=== PATIENT | female | born 1940 | race Caucasian/White ===

== ENCOUNTER → 2016-03-19 12:24 | Outpatient (CLI) | payer MEDICARE, OTHER ==
[2011-11-27 06:35] VITALS: BMI 23.9
[~2016-03-19 12:24] MED LIST: AMITRIPTYLINE100 MG PO; CALCIUM 500 + D1 TAB PO; CARDURA4 MG PO; DILAUDID2 MG PO; DYAZIDE 37.5/251 CAP PO; MULTIPLE VITAMI1 TA1 PO; OMEPRAZOLE40 MG PO; PEPCID20 MG PO; PHENERGAN25 M1 PO; PROAIR HFA8.5 GM INH; PROBIOTIC1 EAC1 PO; PULMICORT0.5 MG/21 INH; REGLAN10 MG PO; SINGULAIR10 MG PO; TESSALON PERLE100 MG PO; TIROSINT100 MCG PO; TRAZODONE HCL50 MG PO; VITAMIN B-1000 MCG/M IM; VITAMIN D250000 UNIT PO; ZOCOR20 MG PO
[2016-03-19 13:09] LABS: BASOPHILS 0.6 % (0.0-2.0); EOSINOPHILS 1.7 % (0-7); HEMATOCRIT 43.4 % (36.0-48.0); HEMOGLOBIN 14.4 g/dL (12-16); IMMATURE GRANULOCYTES 0.3 % (0-5); LYMPHOCYTES 35.8 % (15-50); MCH 32.4 pg (26.0-34.0); MCHC 33.2 g/dL (31.0-37.0); MCV 97.7 fL (80.0-100.0); MEAN PLATELET VOLUME 10.4 fL (7.4-10.4); MONOCYTES 10.6 % (2-11); PLATELET COUNT 199 10x3/uL (130-400); RBC 4.44 10x6/uL (4.00-5.40); RDW 13.7 % (11.5-14.5); WBC 7.3 10x3/uL (4.8-10.8)
[2016-03-19 13:27] LABS: CREATININE - SERUM 0.8 mg/dL (0.6-1.3)
[2016-03-20 10:18] LABS: IMMUNOGLOBULIN E 112 IU/mL (0-100)
== END | disposition home or self-care (01) ==
LOC: D.RT 12:24
PROVIDERS: Internal Medicine Pulmonary Disease
DX: R04.2 Hemoptysis (principal)

== ENCOUNTER → 2016-03-21 12:27 | Outpatient (CLI) | payer MEDICARE, OTHER ==
[2011-11-27 06:35] VITALS: BMI 23.9
== END | disposition home or self-care (01) ==
LOC: D.RT 12:27
DX: J45.991 Cough variant asthma (principal)

== ENCOUNTER 2016-04-18 06:22 | Day surgery (SDC) | payer MEDICARE, OTHER ==
[~2016-04-18] VITALS: Ht 160 cm; Wt 67.3 kg
[2016-04-18 07:18] LABS: BASOPHILS 0.9 % (0.0-2.0); EOSINOPHILS 2.6 % (0-7); HEMATOCRIT 39.1 % (36.0-48.0); HEMOGLOBIN 13.1 g/dL (12-16); LYMPHOCYTES 38.6 % (15-50); MCH 32.3 pg (26.0-34.0); MCHC 33.5 g/dL (31.0-37.0); MCV 96.5 fL (80.0-100.0); MEAN PLATELET VOLUME 9.9 fL (7.4-10.4); MONOCYTES 12.6 % (2-11); NEUTROPHILS 45.3 % (40-80); PLATELET COUNT 187 10x3/uL (130-400); RBC 4.05 10x6/uL (4.00-5.40); RDW 13.5 % (11.5-14.5); WBC 4.6 10x3/uL (4.8-10.8)
[2016-04-18 07:29] LABS: ANION GAP 10.2 mmol/L (8-16); CARBON DIOXIDE 32.5 mmol/L (21.0-32.0); CREATININE - SERUM 0.8 mg/dL (0.6-1.3); POTASSIUM - SERUM 3.7 mmol/L (3.5-5.1)
[2016-04-18 07:31] LABS: APTT 30.6 SECONDS (22.8-39.4); INR 1.05 (0.85-1.17); PROTIME 13.6 SECONDS (11.6-15.0)
[2016-04-18] MEDS ORDERED: TIROSINT100 MCG PO (08:08)
[2016-04-18] MEDS ORDERED: CARDURA4 MG PO (08:09)
[2016-04-18] MEDS ORDERED: ZOCOR20 MG PO (08:09)
[2016-04-18] MEDS ORDERED: TRAZODONE HCL50 MG PO (08:10)
[2016-04-18] MEDS ORDERED: OMEPRAZOLE40 MG PO (08:10)
[2016-04-18] MEDS ORDERED: AMITRIPTYLINE100 MG PO (08:11)
[2016-04-18] MEDS ORDERED: DYAZIDE 37.5/251 CAP PO (08:11)
[2016-04-18] MEDS ORDERED: VITAMIN D250000 UNIT PO (08:12)
[2016-04-18] MEDS ORDERED: PROBIOTIC1 EAC1 PO (08:13)
[2016-04-18] MEDS ORDERED: VITAMIN B-1000 MCG/M IM (08:13)
[2016-04-18] MEDS ORDERED: MULTIPLE VITAMI1 TA1 PO (08:13)
[2016-04-18] MEDS ORDERED: CALCIUM 500 + D1 TAB PO (08:14)
[2016-04-18 08:15] VITALS: BP 126/83; Ht 160 cm; Wt 67.3 kg
[2016-05-14] MEDS ORDERED: PEPCID20 MG PO (12:40)
[2016-05-14] MEDS ORDERED: TESSALON PERLE100 MG PO (12:41)
[2016-05-14] MEDS ORDERED: SINGULAIR10 MG PO (12:41)
[2016-05-14] MEDS ORDERED: PULMICORT0.5 MG/21 INH (12:44)
--- NOTE | 2016-05-16 13:21 | OP ---
PATIENT NAME: CARMELO ABDALLA MEDICAL RECORD: [id number] :39 LOCATION:D.OPS ADMISSION DATE: SURGEON: GUY DUBOIS MD DATE OF OPERATION: 04/18/2016 PREOPERATIVE DIAGNOSES: 1. Gastroesophageal reflux disease. 2. Hiatal hernia. 3. Hypertension. 4. Thyroid disease. 5. Asthma. 6. Hyperlipidemia. POSTOPERATIVE DIAGNOSES: 1. Gastroesophageal reflux disease. 2. Hiatal hernia. 3. Hypertension. 4. Thyroid disease. 5. Asthma. 6. Hyperlipidemia. PROCEDURE: EGD with biopsy. SURGEON: Guy Dubois MD REPORT OF PROCEDURE: The Olympus endoscope was advanced through the mouth and esophagus. We passed through the stomach and into the second portion of the duodenum. There was no sign of any inflammatory changes present there. As we pulled back, we could see some evidence of gastritis with no ulcerations or masses in the antrum of the stomach. The random biopsy was performed to the antrum of the stomach. As we looked at the body of the stomach, there were about 3-4 polyps present, some sessile, some pedunculated, all appeared to be benign, looking more like hyperplastic polyps. One of the polyps was completely excised and sent off for permanent specimen. A retroflex view showed that the patient did have a large hiatal hernia. As we pulled back, we could see that the hiatal hernia was 5 cm in length. The GE junction rested at 31 cm from the teeth. The esophagus itself appeared to be normal with no signs of any masses, ulcerations or diverticuli. The distal esophagus had no sign of any ulcerations, but a random biopsy was performed. We reinspected and assured there was no sign of any active bleeding and then removed the insufflation. At this point, the endoscope was removed. COMPLICATIONS: None. CONDITION: Stable. ANESTHESIA: TIVA. BLOOD LOSS: Minimal. TRANSINT:[id number] Voice Confirmation ID: [id number] DOCUMENT ID: [id number] OPERATIVE REPORT [id number] RMCARMELO GUY DUBOIS MD at 1321 CC: NIC REINOSO MD [id number] DICTATION DATE: 04/18/16 1033 [place] MACHINIST: 04/18/16 1838 [facility] 04/18/16 [facility] [address] [place] [address]
== END 2016-04-18 12:10 | disposition home or self-care (01) ==
LOC: D.OPS 06:22
PROVIDERS: Anesthesiology
DX: K21.9 Gastro-esophageal reflux disease without esophagitis (principal); K44.9 Diaphragmatic hernia without obstruction or gangrene; I10 Essential (primary) hypertension; E07.9 Disorder of thyroid, unspecified; J45.909 Unspecified asthma, uncomplicated; E78.5 Hyperlipidemia, unspecified; K20.9 Esophagitis, unspecified; K31.9 Disease of stomach and duodenum, unspecified

== ENCOUNTER 2016-05-15 05:26 | Day surgery (SDC) | payer MEDICARE, OTHER ==
[2016-05-14 13:28] LABS: BASOPHILS 0.6 % (0.0-2.0); EOSINOPHILS 1.4 % (0-7); HEMATOCRIT 38.1 % (36.0-48.0); HEMOGLOBIN 12.6 g/dL (12-16); IMMATURE GRANULOCYTES 0.2 % (0-5); LYMPHOCYTES 40.4 % (15-50); MCH 31.8 pg (26.0-34.0); MCHC 33.1 g/dL (31.0-37.0); MCV 96.2 fL (80.0-100.0); MEAN PLATELET VOLUME 10.1 fL (7.4-10.4); MONOCYTES 8.7 % (2-11); NEUTROPHILS 48.7 % (40-80); PLATELET COUNT 192 10x3/uL (130-400); RBC 3.96 10x6/uL (4.00-5.40); RDW 13.6 % (11.5-14.5); WBC 6.3 10x3/uL (4.8-10.8)
[2016-05-14 13:52] LABS: ANION GAP 13.3 mmol/L (8-16); CARBON DIOXIDE 29.3 mmol/L (21.0-32.0); CREATININE - SERUM 0.8 mg/dL (0.6-1.3); POTASSIUM - SERUM 3.6 mmol/L (3.5-5.1)
[2016-05-15] VITALS (9 sets, daily range): BP systolic 106–139; BP diastolic 65–80; Ht 160 cm; Wt 67.3 kg
[~2016-05-15] VITALS: Ht 160 cm; Wt 67.3 kg
[~2016-05-15 05:26] MED LIST changes: -DILAUDID2 MG PO; -PHENERGAN25 M1 PO; -PROAIR HFA8.5 GM INH; -REGLAN10 MG PO
[2016-05-15] MEDS ORDERED: PROAIR HFA8.5 GM INH (08:32)
--- NOTE | 2016-05-15 13:56 | NUR ---
CARE TO JONH NIEVES RN @[id number]
--- NOTE | 2016-05-15 14:20 | NUR ---
RECD TO ROOM 2224 VIA STRETCHER AT PRESENT BANDAIDE TIMES 4 TO ABD AT PRESENT AT BEDSIDE.
--- NOTE | 2016-05-15 16:00 | NUR ---
QUIET IN ROOM AT PRESENT N/C VOICED AT THIS TIME.
--- NOTE | 2016-05-15 18:52 | NUR ---
AWAKE ALERT COLOR ADQ SKIN WARM AND DRY RESP EVEN AND UNLABORED AT PRESENT.ANIMAL PATHOLOGY TEACHER IN PLACE CONT NPO AT PRESENT 4 BANDAIDES TO ABD AT PRESENT. AT BEDSIDE AT PRESENT N/C.
--- NOTE | 2016-05-15 19:10 | NUR ---
BEDSIDE REPORT RECEIVED AND CARE OF PT ASSUMED. PT LYING IN SEMI BUTLER'S POSITION WATCHING TV. STATES PAIN WELL CONTROLLED ON WELDER. NPO STATUS DISCUSSED WITH PT. WILL MONITOR CLOSLEY FOR NEEDS. CALL LIGHT WITHIN REACH.
--- NOTE | 2016-05-15 20:19 | NUR ---
HS MEDICATIONS GIVEN. PT STATES PAIN WELL CONTROLLED WITH HAND EDGE BANDER. WILL CONTINUE TO MONITOR FOR NEEDS.
--- NOTE | 2016-05-15 23:54 | NUR ---
ASSISTED PT UP TO RESTROOM...VOIDED 400 ML OF YELLOW URINE. POSITIONED BACK IN BED FOR COMFORT. SCD'S RE-STARTED. PT PERFORMED IS TO 1000. WILL CONTINUE TO MONITOR FOR NEEDS.
[2016-05-16 05:26] LABS: BASOPHILS 0 % (0.0-2.0); EOSINOPHILS 0 % (0-7); HEMATOCRIT 33.5 % (36.0-48.0); HEMOGLOBIN 10.9 g/dL (12-16); IMMATURE GRANULOCYTES 0.1 % (0-5); MCH 31.8 pg (26.0-34.0); MCHC 32.5 g/dL (31.0-37.0); MCV 97.7 fL (80.0-100.0); MEAN PLATELET VOLUME 10.1 fL (7.4-10.4); NEUTROPHILS 84.9 % (40-80); PLATELET COUNT 185 10x3/uL (130-400); RBC 3.43 10x6/uL (4.00-5.40); RDW 14.1 % (11.5-14.5)
[2016-05-16 05:31] LABS: CALC OSMOLALITY 280 mosm/kg (275-300); CARBON DIOXIDE 28.2 mmol/L (21.0-32.0); CHLORIDE - SERUM 108 mmol/L (98-107); CREATININE - SERUM 0.7 mg/dL (0.6-1.3); GLUCOSE 118 mg/dL (74-106); POTASSIUM - SERUM 3.8 mmol/L (3.5-5.1); SODIUM 141 mmol/L (136-145); UREA NITROGEN 9 mg/dL (7-18); eGFR NON AFRICAN AMERICAN 86 mL/min (90-120)
[2016-05-16 05:48] LABS: CALCIUM 6.9 mg/dL (8.5-10.1)
[2016-05-16 07:55] VITALS: BP 128/75
--- NOTE | 2016-05-16 08:00 | NUR ---
PT ASSESSMENT COMPLETE ON AM ROUNDS NO ACUTE DISTRESS NTOED DRESSING INTACT FROM LAP LYNN PROCEEDURE YESTERDAY. PT AWAKE AND ALERT ORINETD X 3 LUNGS CLEAR BIALTERALLY HAS DRESSING IN TACT WILL CONTINUE TO MONITOR.
--- NOTE | 2016-05-16 11:00 | NUR ---
PT AWAKE AND WALKING ON UNIT. BALANCE AND GAIT GOOD. SPOUSE AT SIDE.
[2016-05-16 12:22] VITALS: BP 113/65
--- NOTE | 2016-05-16 13:21 | OP ---
PATIENT NAME: CARMELO ABDALLA MEDICAL RECORD: [id number] :39 LOCATION: D.2224 ADMISSION DATE: SURGEON: GUY DUBOIS MD DATE OF OPERATION: 05/15/2016 PREOPERATIVE DIAGNOSES: 1. Gastroesophageal reflux disease. 2. Hiatal hernia. 3. Asthma. 4. Hypertension. 5. Hypercholesterolemia. 6. Vitamin D deficiency. 7. Tobacco dependent syndrome. POSTOPERATIVE DIAGNOSES: 1. Gastroesophageal reflux disease. 2. Hiatal hernia. 3. Asthma. 4. Hypertension. 5. Hypercholesterolemia. 6. Vitamin D deficiency. 7. Tobacco dependent syndrome. PROCEDURE: Laparoscopic hiatal hernia repair with Joseph fundoplication. SURGEON: Guy Dubois MD REPORT OF PROCEDURE: The patient's abdomen was prepped and draped in sterile fashion. A Veress needle was inserted in the left upper quadrant and the abdomen was insufflated. An 11-mm Visiport trocar was inserted in the midline just above the umbilicus. The Veress needle was visualized and there was no evidence of any injury to bowel or surrounding structures. At this point, the Veress needle was removed and a 12-mm trocar was placed in the left subcostal region. A 5-mm trocar was placed in the epigastrium. A 5-mm trocar was placed in the left lateral abdomen and a 5-mm trocar was placed in the right lateral subcostal region. The liver retractor was inserted and the left lobe of the liver was elevated. The patient had a large hiatal hernia with about a third of the stomach up in the chest cavity, we manipulated the stomach out of the chest cavity and took down the lesser omentum using Harmonic scalpel. This dissection was continued up to the right side of the right adela. We continued our dissection up into the thoracic cavity and around the esophagus. We took down the hernia sac and was able to get into the plane around the hernia sac up into the chest. We continued our dissection as far anteriorly and posteriorly as possible. At this point, we went to the greater curvature of the stomach and using Harmonic scalpel, took down the short gastrics of the upper third of the stomach including the fundus, we continued our dissection around the fundus and up to the left side of the right adela. We then continued our dissection up into the thoracic cavity and again came around the patient's thoracic hernia sac. Once we got into the plane, we were able to release the hernia sac. At this point, we had a 360 degree inspection of the patient's esophagus. The esophagus and the stomach would easily lie in the abdominal cavity at this point. The hernia sac was removed. At this point, the esophageal hiatus was closed with interrupted 0 Polydek times 3 with good approximation of the tissue. We then performed a 360-degree posterior wrap at the fundus around the distal esophagus. This was performed using interrupted 0 Polydek times 3. The top and the bottom OPERATIVE REPORT [id number] CARMELO ABDALLA suture incorporated a bite of the esophagus. The wrap appeared to be in good position and it did not appear to be too tight. The indwelling OG tube was removed easily. We irrigated out the abdomen and assured there was no sign of any bleeding or leakage. At this point, the liver retractor was removed. The 11 and 12-mm trocar site fascias were then closed with interrupted 0 Vicryls using a Leonardo-George suture passer device. The ports and insufflation were then removed. The subcutaneous tissues were infused with a total of 10 mL of 0.25% Marcaine with epinephrine. The skin incisions were then all closed with subcutaneous 5-0 Monocryl. COMPLICATIONS: None. CONDITION: Stable. ANESTHESIA: General endotracheal and local. BLOOD LOSS: Minimal. TRANSINT:[id number] Voice Confirmation ID: [id number] DOCUMENT ID: [id number] GUY DUBIOS MD at 1321 CC: KATHLEEN FIELDS MD and NIC REINOSO MD [id number] DICTATION DATE: 05/15/16 1330 ASSOCIATE PROGRAM MANAGER: 05/15/16 1855 [facility] [address] [place] [id number]
[2016-05-16] MEDS ORDERED: REGLAN10 MG PO (14:12)
[2016-05-16] MEDS ORDERED: PHENERGAN25 M1 PO (14:12)
[2016-05-16] MEDS ORDERED: DILAUDID2 MG PO (14:13)
--- NOTE | 2016-05-16 16:26 | NUR ---
PT DISCHARGE TO HOME DISCHARGE INSTRUCTIONS GIVEN PT EXPRESSED UNDERSTANDING. PIV DISCONTINUED WITH NO DIFFICULTY NOTED.
== END 2016-05-16 16:26 | disposition home or self-care (01) ==
LOC: D.OPS 05:26 → D.MS 05:26 → D.OPS 10:00 → D.PAN 10:45 → D.OPS 11:30 → D.MS 14:19 → D.OPS 05-16 16:26
PROVIDERS: Surgery
DX: K21.9 Gastro-esophageal reflux disease without esophagitis (principal); K44.9 Diaphragmatic hernia without obstruction or gangrene; J45.909 Unspecified asthma, uncomplicated; I10 Essential (primary) hypertension; E78.00 Pure hypercholesterolemia, unspecified; E55.9 Vitamin D deficiency, unspecified; F17.200 Nicotine dependence, unspecified, uncomplicated

== ENCOUNTER 2016-06-12 20:30 | Emergency (ER) | payer MEDICARE, OTHER ==
[~2016-06-12 20:30] MED LIST changes: +DILAUDID2 MG PO; +PHENERGAN25 M1 PO; +PROAIR HFA8.5 GM INH; +REGLAN10 MG PO
[2016-06-12 21:55] LABS: BASOPHILS 0 % (0-2); EOSINOPHILS 0.3 % (0-7); HEMATOCRIT 43.6 % (36.0-48.0); HEMOGLOBIN 15.4 g/dL (12-16); IMMATURE GRANULOCYTES 0.6 % (0-5); LYMPHOCYTES 20.3 % (15-50); MCH 32.4 pg (26.0-34.0); MCHC 35.3 g/dL (31.0-37.0); MCV 91.6 fL (80.0-100.0); MEAN PLATELET VOLUME 10.5 fL (7.4-10.4); NEUTROPHILS 69.8 % (40-80); RBC 4.76 10x6/uL (4.00-5.40); WBC 11.2 10x3/uL (4.8-10.8)
[2016-06-12 21:57] LABS: PLATELET COUNT 230 10x3/uL (130-400)
[2016-06-12 22:10] LABS: ALBUMIN 3.8 g/dL (3.4-5.0); ALKALINE PHOSPHATASE 79 U/L (46-116); ALT (SGPT) 46 U/L (10-68); BILIRUBIN - TOTAL 0.54 mg/dL (0.2-1.3); CALC OSMOLALITY 268 mosm/kg (275-300); CALCIUM 9.5 mg/dL (8.5-10.1); CARBON DIOXIDE 29.2 mmol/L (21.0-32.0); CHLORIDE - SERUM 95 mmol/L (98-107); CREATININE - SERUM 0.8 mg/dL (0.6-1.3); GLUCOSE 115 mg/dL (74-106); POTASSIUM - SERUM 3.7 mmol/L (3.5-5.1); PROTEIN - SERUM 6.8 g/dL (6.4-8.2); SODIUM 132 mmol/L (136-145); UREA NITROGEN 20 mg/dL (7-18); eGFR NON AFRICAN AMERICAN 74 mL/min (90-120)
[2016-06-12 22:18] LABS: CREATINE KINASE 40 UL (21-215)
[2016-06-12 22:20] LABS: TROPONIN-I < 0.017 ng/mL (0.000-0.060)
== END 2016-06-12 23:15 | disposition home or self-care (01) ==
LOC: D.ER 20:30
PROVIDERS: Emergency Medicine
DX: K21.9 Gastro-esophageal reflux disease without esophagitis (principal); K22.4 Dyskinesia of esophagus; C18.9 Malignant neoplasm of colon, unspecified; I10 Essential (primary) hypertension

== ENCOUNTER 2016-06-17 01:23 | Inpatient (IN) | payer MEDICARE, OTHER ==
[~2016-06-17] VITALS: Ht 160 cm; Wt 66.4 kg
--- NOTE | ~2016-06-17 | CN ---
PATIENT NAME:CARMELO ABDALLA MEDICAL RECORD: [id number] : 39 LOCATION:D. D.2128 ADMIT DATE: 06/17/16 ACCOUNT: [id number] CONSULTING PHYSICIAN: ALEJANDRA MATHEWS MD REFERRING PHYSICIAN: CINTHIA NGO MD DATE OF CONSULTATION: 06/17/2016 Consultation Note Addendum CHIEF COMPLAINT: Pain. HISTORY OF PRESENT ILLNESS: The patient has had recurrent diverticulitis. This is now her second or third bout of diverticulitis. She is not sure whether she wants to have a resection or not yet. I have personally reviewed the CT images. I have personally reviewed the radiologist's report. Palpation aggravates. Nothing alleviates. Symptoms are of recent onset. They are recurrent symptoms. She has had no rectal bleeding. This is a consultation note addendum. For the typed portion of the consult note, to see in the chart and includes the past medical and surgical history, allergies, social history, as well as current medications. REVIEW OF SYSTEMS: No nausea, no vomiting, no fever, no chills. As a matter of fact, the patient was eating a piece of soft diet and I am going to put her on a clear liquid diet. Positive for abdominal pain. No dyspnea, no back pain. PHYSICAL EXAMINATION: GENERAL: The patient does not appear acutely ill. She does appear chronically ill. The entire physical examination was performed in the presence of a female nurse. HEAD: External ears appear normal. EYES: Extraocular movements are intact. NECK: Trachea is midline. CHEST: No intercostal retractions. PULMONARY: Nonlabored, no stridor. ABDOMEN: Left lower quadrant tenderness with guarding and localized peritonitis to percussion. EXTREMITIES: No peripheral cyanosis. INTEGUMENT: No rash, no ulcerations. PSYCHIATRIC: Normal affect. NEUROLOGIC: Nonfocal, no lethargy. The patient answers questions appropriately, moves all extremities well. BACK: No thoracic kyphosis. LYMPHATICS: No lymphangitic streaking of the exposed extremities. IMPRESSION: Recurrent diverticulitis without apparent abscess or free intraperitoneal air. PLAN: Continue IV antibiotics. I am going to add Invanz in addition to the Flagyl the patient is already on. She is intolerant of Levaquin. She has never tried Cipro in the past, however. TRANSINT:[id number] Voice Confirmation ID: [id number] DOCUMENT ID: [id number] CONSULT REPORT [id number] CARMELO ABDALLA ROBERT MD CC: [id number] DICTATION DATE: 06/19/16 1056 PLANT OPERATOR HELPER: 06/19/16 1337 [address] [place] [id number] [place] [id number]
--- NOTE | ~2016-06-17 | PN ---
PATIENT:CARMELO ABDALLA MEDICAL RECORD: [id number] LOCATION:D.M2 D.212 ADMISSION DATE: 06/17/16 PROGRESS NOTE DATE OF SERVICE: 06/18/2016 Daily Visit Progress Note Addendum CHIEF COMPLAINT: Better. SUBJECTIVE: She is having less abdominal pain. She feels better. She now tells me that she has actually seen Dr. Mendez in the past. He has performed an antireflux procedure on her. This is her third bout of diverticulitis. After she recovers from this bout of diverticulitis, she is uncertain whether she wants to undergo a segmental resection of the sigmoid colon or not. She will decide on that and see Dr. Mendez in the office. There is no peritonitis to percussion today. I am going to advance her diet. She is intolerant of Levaquin due to muscle aches; however, she is willing to try Cipro. I have recommended that she be dismissed home on Cipro as well as Flagyl. She can follow up with Dr. Mendez. Palpation aggravates. Nothing alleviates. Symptoms are mild in intensity. This is a progress note addendum. For the typed portion of the progress note, please see the chart. This would include past medical and surgical history, allergies, social history as well as current medications. REVIEW OF SYSTEMS: No nausea, no vomiting, no fever and no chills. The review systems is negative other than as described above. PHYSICAL EXAMINATION: GENERAL: The patient does not appear acutely ill. She does appear chronically ill. VITAL SIGNS: Reviewed. HEAD: External ears appear normal. EYES: Extraocular movements are intact. The entire physical examination was performed in the presence of a female nurse. NECK: Trachea is midline. CHEST: No intercostal retractions. PULMONARY: Nonlabored, no stridor. ABDOMEN: As described above. EXTREMITIES: No peripheral cyanosis. INTEGUMENT: No rash. PSYCHIATRIC: Normal affect. NEUROLOGIC: Nonfocal, no lethargy. The patient answers questions appropriately. She moves all extremities well. BACK: No thoracic kyphosis. LYMPHATIC: No lymphangitic streaking of the exposed extremities. IMPRESSION: Recurrent diverticulitis. PLAN: Home on oral antibiotics. Follow up with Dr. Mendez, her surgeon. TRANSINT:[id number] Voice Confirmation ID: [id number] DOCUMENT ID: [id number] PROGRESS NOTE [id number] CARMELO ABDALLA ROBERT MD CC: [id number] DICTATION DATE: 06/19/16 1111 SOCIAL WORKER PALLIATIVE CARE: 06/19/16 183 [address] IN 06/19/16 [address] [id number] [place] [address]
[2016-06-17 02:20] LABS: BASOPHILS 0.1 % (0-2); EOSINOPHILS 0.7 % (0-7); HEMATOCRIT 39.8 % (36.0-48.0); HEMOGLOBIN 13.5 g/dL (12-16); IMMATURE GRANULOCYTES 0.3 % (0-5); LYMPHOCYTES 19.1 % (15-50); MCH 31.7 pg (26.0-34.0); MCHC 33.9 g/dL (31.0-37.0); MCV 93.4 fL (80.0-100.0); MEAN PLATELET VOLUME 10.3 fL (7.4-10.4); MONOCYTES 8.6 % (2-11); NEUTROPHILS 71.2 % (40-80); PLATELET COUNT 165 10x3/uL (130-400); RBC 4.26 10x6/uL (4.00-5.40); RDW 13.3 % (11.5-14.5); WBC 14.8 10x3/uL (4.8-10.8)
[2016-06-17 02:41] LABS: AMYLASE - SERUM 27 U/L (25-115); CREATININE - SERUM 0.7 mg/dL (0.6-1.3); GLUCOSE 128 mg/dL (74-106); LIPASE 92 U/L (73-393); UREA NITROGEN 13 mg/dL (7-18)
[2016-06-17 02:42] LABS: ALBUMIN 3.2 g/dL (3.4-5.0); ALKALINE PHOSPHATASE 79 U/L (46-116); ALT (SGPT) 27 U/L (10-68); BILIRUBIN - TOTAL 0.78 mg/dL (0.2-1.3); CALC OSMOLALITY 273 mosm/kg (275-300); CALCIUM 8.8 mg/dL (8.5-10.1); CARBON DIOXIDE 30.4 mmol/L (21.0-32.0); CHLORIDE - SERUM 99 mmol/L (98-107); POTASSIUM - SERUM 3.4 mmol/L (3.5-5.1); SODIUM 136 mmol/L (136-145); eGFR NON AFRICAN AMERICAN 86 mL/min (90-120)
[2016-06-17 02:45] LABS: TROPONIN-I < 0.017 ng/mL (0.000-0.060)
--- NOTE | 2016-06-17 05:30 | NUR ---
RECEIVED PT TO ROOM 2128 ALERT O X3. ASSESS AND HISTORY COMPLETE. ORIENTED TO ROOM AND CALL LIGHT. BED ALARM ON. WILL CONT TO MONITOR.
[2016-06-17 05:48] VITALS: BP 115/62; BMI 24.6
[2016-06-17 08:08] VITALS: BP 107/65
--- NOTE | 2016-06-17 08:17 | NUR ---
AM ROUNDS - PT APPEARS TO BE SLEEPING ON BACK WITH BREATHS EQUAL AND NON LABORED. IV IS OFF. WILL CONTINUE TO MONITOR.
--- NOTE | 2016-06-17 11:10 | NUR ---
OFFERED PT SCDS FOR DVT PROPHYLACTICS HOWEVER PT DENIES NEED OR WANT TO WEAR THEM SHE IS AMBULATORY OFTEN AND CURRENTING WALKING WITH PHYSICAL THERAPY WELL.
[2016-06-17 11:39] VITALS: BP 121/70
[2016-06-17 13:09] VITALS: Ht 160 cm; Wt 66.4 kg
[2016-06-17 15:38] VITALS: BP 124/66
--- NOTE | 2016-06-17 18:27 | NUR ---
PT IN BED STATES THAT SHE HAD SOME "SEEPING" FROM HER ANUS THAT WAS BLOOD TINGED AND MUCUS. STATES THAT DINNER WAS GOOD. WILL CONTINUE TO MONITOR
--- NOTE | 2016-06-17 19:43 | NUR ---
ASSESSMENT COMPLETE, PT A&O, IN BED WATCHING TV. RESPERATIONS EVEN ON RA. IV TO RIGHT AC WITH NS AT 100, SITE CLEAN AND DRY. PT ASKING ABOUT NEW ABX ORDERED BY SURGEON, INFORMED HER THAT I WILL CHECK MY ORDERS AND LET HER KNOW OF RIGHT NOW, I HAVENT SEEN ANY NEW ORDERS. PT DENIES PAIN OR OTHER NEEDS, BED LOW, CL IN REACH.
[2016-06-17 19:56] VITALS: BP 112/65
[2016-06-17 20:07] LABS: CKMB 0.6 U/L (0.0-3.6); CREATINE KINASE 33 UL (21-215); TROPONIN-I < 0.017 ng/mL (0.000-0.060)
--- NOTE | 2016-06-17 23:31 | NUR ---
INFORMATION SYSTEMS OPERATOR AT BEDSIDE FOR VS. NEEDS ADDRESSED AT THIS TIME. CALL LIGHT IN REACH. WILL CONT TO MONITOR.
[2016-06-17 23:42] VITALS: BP 105/52
[2016-06-18 01:20] LABS: CKMB 0.2 U/L (0.0-3.6); CREATINE KINASE 31 UL (21-215)
[2016-06-18 01:36] LABS: TROPONIN-I < 0.017 ng/mL (0.000-0.060)
[2016-06-18 03:42] VITALS: BP 117/68
--- NOTE | 2016-06-18 03:44 | NUR ---
RESTING WITH EYES CLOSED, RESPERATIONS EVEN, NO S/S DISTRESS NOTED.
[2016-06-18 06:54] LABS: BASOPHILS 0.1 % (0-2); EOSINOPHILS 1.1 % (0-7); HEMATOCRIT 36.1 % (36.0-48.0); IMMATURE GRANULOCYTES 0.3 % (0-5); LYMPHOCYTES 19.6 % (15-50); MCH 31.8 pg (26.0-34.0); MCHC 33.2 g/dL (31.0-37.0); MEAN PLATELET VOLUME 10.7 fL (7.4-10.4); MONOCYTES 9.3 % (2-11); NEUTROPHILS 69.6 % (40-80); PLATELET COUNT 162 10x3/uL (130-400); RBC 3.77 10x6/uL (4.00-5.40); RDW 14.1 % (11.5-14.5)
[2016-06-18 06:59] LABS: MCV 95.8 fL (80.0-100.0); WBC 9.7 10x3/uL (4.8-10.8)
[2016-06-18 07:18] LABS: ALBUMIN 2.5 g/dL (3.4-5.0); ALKALINE PHOSPHATASE 71 U/L (46-116); ALT (SGPT) 25 U/L (10-68); BILIRUBIN - TOTAL 0.47 mg/dL (0.2-1.3); CALCIUM 7.8 mg/dL (8.5-10.1); CARBON DIOXIDE 31.6 mmol/L (21.0-32.0); CHLORIDE - SERUM 104 mmol/L (98-107); CKMB 0.3 U/L (0.0-3.6); CREATINE KINASE 90 UL (21-215); GLUCOSE 118 mg/dL (74-106); PROTEIN - SERUM 5.4 g/dL (6.4-8.2); SODIUM 138 mmol/L (136-145)
[2016-06-18 07:22] LABS: CALC OSMOLALITY 274 mosm/kg (275-300); CREATININE - SERUM 0.9 mg/dL (0.6-1.3); POTASSIUM - SERUM 4.1 mmol/L (3.5-5.1); TROPONIN-I < 0.017 ng/mL (0.000-0.060); UREA NITROGEN 6 mg/dL (7-18); eGFR NON AFRICAN AMERICAN 64 mL/min (90-120)
--- NOTE | 2016-06-18 08:29 | NUR ---
INTRODUCED MYSELF TO PT PRIMARY RN FOR TODAYS SHIFT. PT IS ALERT AND ORIENTED SITTING UP IN BED EATING BREAKFAST. PT SWALLOWED ALL HER MORNING MEDS WITHOUT ANY DIFFICULTIES. PT STATED SOME OF HER MEDS SHE DOESNT TAKE ANYMORE SO I UPDATED HER HOME MED REC. SHIFT ASSESSMENT COMPLETED. PT HAS R.FA PIV WITH DRSG CDI AND SWAB CAPS IN USE, NS INFUSING @100ML/HR. PT DENIES ANY CURRENT PAIN OR NEEDS. CL IN REACH, BED IN LOWEST, SIDE RAILS X2. WILL CPOC.
[2016-06-18 08:53] VITALS: BP 132/73
--- NOTE | 2016-06-18 09:34 | NUR ---
PT CALLED C/O STOMACH CRAMPS REQUESTING AND PROVIDED WITH PRN PAIN MEDICATION. PT READY TO TAKE AND SHOWER AND IS AT BEDSIDE TO ASSIST. DISCONNECTED PT FROM IV POLE AND WRAPPED IV SITE. WILL RECONNECT AFTER SHOWER. SHOWER SUPPLIES PROVIDED. NO FURTHER NEEDS.
[2016-06-18 12:48] VITALS: BP 141/80
--- NOTE | 2016-06-18 13:29 | NUR ---
PT AMBULATED WELL WITH PHYSICAL THERAPY WALKED 750FT THE FIRST ROUND IN [facility] AND JUST NOW 500FT. THERAPY IS NOW SIGNING OFF PT HAS SLOW STEADY SAFE GAIT ON HER OWN.
--- NOTE | 2016-06-18 13:45 | NUR ---
PT CALLED REQUESTING HER PRN PAIN MEDICATION AND WAS PROVIDED WITH HER MORPHINE VIA R.FA PIV WITH DRSG CDI AND SWAB CAPS IN USE. PT RESTING AND VOICED THANKS AND DENIES ANY FURTHER NEEDS AT THIS TIME. WILL CPOC.
--- NOTE | 2016-06-18 16:02 | NUR ---
OFFERED PT SCDS FOR DVT PROPHYLACTICS HOWEVER PT DENIES NEED OR WANT TO WEAR THEM SHE IS AMBULATORY OFTEN AND CURRENTING WALKING WITH PHYSICAL THERAPY WELL.
[2016-06-18 16:21] VITALS: BP 124/80
--- NOTE | 2016-06-18 18:20 | NUR ---
PT CALLED REQUESTING PRN PAIN MEDICATION AND WAS PROVIDED WITH HER MORPHINE. PT RESTING IN BED AND DENIES ANY FURTHER NEEDS AT THIS TIME. CL IN REACH. WILL CPOC.
[2016-06-18 20:00] VITALS: BP 123/58
--- NOTE | 2016-06-18 20:39 | NUR ---
AWAKE NO DISTRESS. UP TO BR. REFUSED TO TAKE ELAVIL. STATES SHE DOES NOT TAKE IT ANYMORE.
[2016-06-18 23:00] VITALS: BP 139/76
[2016-06-19 05:10] VITALS: BP 136/77
[2016-06-19 05:14] LABS: BASOPHILS 0.3 % (0-2); EOSINOPHILS 1.7 % (0-7); HEMOGLOBIN 11.9 g/dL (12-16); IMMATURE GRANULOCYTES 0.3 % (0-5); LYMPHOCYTES 30.8 % (15-50); MCH 31.6 pg (26.0-34.0); MCHC 33.1 g/dL (31.0-37.0); MCV 95.5 fL (80.0-100.0); MEAN PLATELET VOLUME 10.1 fL (7.4-10.4); MONOCYTES 9.2 % (2-11); NEUTROPHILS 57.7 % (40-80); PLATELET COUNT 157 10x3/uL (130-400); RBC 3.77 10x6/uL (4.00-5.40)
[2016-06-19 05:34] LABS: ALBUMIN 2.7 g/dL (3.4-5.0); BILIRUBIN - TOTAL 0.44 mg/dL (0.2-1.3); CALCIUM 7.8 mg/dL (8.5-10.1); CARBON DIOXIDE 34.5 mmol/L (21.0-32.0); CREATININE - SERUM 0.8 mg/dL (0.6-1.3); POTASSIUM - SERUM 3.5 mmol/L (3.5-5.1); PROTEIN - SERUM 5.1 g/dL (6.4-8.2)
[2016-06-19 07:44] VITALS: BP 129/81
--- NOTE | 2016-06-19 10:20 | NUR ---
PTS R.FA PIV INFILTRATED. D/C WITH CATHETER TIP FULLY INTACT. NEW ACCESS GAINED IN L.HAND WITH 22 GUAGE X2 ATTEMPTS. DRSG CDI AND SWAB CAPS IN USE. PT VOICED THANKS AND IS RESTING QUIETLY IN BED DENIES ANY FURTHER NEEDS AT THIS TIME. CL IN REACH. WILL CPOC.
[2016-06-19] MEDS ORDERED: FLAGYL500 MG PO ×2 (12:40→12:56)
[2016-06-19] MEDS ORDERED: PROTONIX40 MG PO (12:42)
[2016-06-19 12:51] VITALS: BP 149/82
[2016-06-19] MEDS ORDERED: CIPRO500 MG PO (12:56)
--- NOTE | 2016-06-19 14:54 | NUR ---
Patient Name: CARMELO ABDALLA Admission Status: ER Accout number: [id number] Admission Date: 06-17-2016 : 1939 Admission Diagnosis: Attending: SAIDA Current LOS: 2 Anticipated DC Date: 06-19-2016 Planned Disposition: Home Primary Insurance: MEDICARE A & B Discharge Planning Comments: * Is the patient Alert and Oriented? Yes 0 * How many steps to enter\exit or inside your home? NONE 0 * PCP DR. REINOSO 0 * Pharmacy [facility] OR [facility] 0 * Preadmission Environment Home with Family 0 * ADLs Independent 0 * Equipment None 0 * Other Equipment NO MEDICAL EQUIPMENT PROVIDER PREFERNCE 0 * List name and contact numbers for known caregivers / representatives who currently or will assist patient after discharge: KEVAN ABDALLA, SPOUSE, 0 * Community resources currently utilized None 0 * Please name any agencies selected above. NONE 0 * Additional services required to return to the preadmission environment? No 0 * Can the patient safely return to the preadmission environment? Yes 0 * Has this patient been hospitalized within the prior 30 days at any hospital? No 0 CM MET WITH PT IN ROOM TO DISCUSS DISCHARGE PLANNING AND NEEDS. PT REPORTS LIVING AT HOME INDEPENDENTLY WITH HER SPOUSE. PT HAS NO MEDICAL EQUIPMENT AND NO OUTSIDE SERVICES ASSISTING IN THE HOME. CM DISCUSSED AVAILABILITY OF HOME HEALTH, REHAB SERVICES AND MEDICAL EQUIPMENT. PT DENIES DISCHARGE NEEDS, REPORTS HER SPOUSE IS HERE TO PICK HER UP FOR DISCHARGE HOME. IMPORTANT MESSAGE FROM MEDICARE PROVIDED AND EXPLAINED. Dial Mounter: Haseeb Lal
--- NOTE | 2016-06-19 15:16 | NUR ---
PT REQUESTED PRN PAIN MEDICATION ONCE MORE BEFORE DISCHARGE. PROVIDED PT WITH PRN MORPHINE VIA L.HAND PIV ACCESS THEN FLUSHED. D/C PTS IV WITH CATHETER TIP FULLY INTACT. DISCHARGE PAPERS SIGNED AND TEACHING DONE, PT VERBALIZED UNDERSTANDING AND DENIES ANY QUESTIONS OR CONCERNS. BELONGINGS COLLECTED, PT WAITING FOR W/C TO BE TRANSPORTATED TO [facility] WHERE IS PICKING HER UP.
--- NOTE | 2016-06-20 08:43 | DS ---
PATIENT:CARMELO ABDALLA :39 MEDICAL RECORD: [id number] DISCHARGE SUMMARY ADMISSION DATE: 06/17/16 DISCHARGE DATE: 06/19/16 DATE OF ADMISSION: 06/17/2016 DATE OF DISCHARGE: 06/19/2016 ADMITTING DIAGNOSES: Diverticulitis, leukocytosis, status post laparoscopic Joseph fundoplication, asthma, hypertension, history of colon cancer. HOSPITAL COURSE: This is a 75-year-old white female, patient of Dr. Reinoso, was admitted with diagnoses as outlined above. Details are well-outlined in the history of the present illness, H&P. All events, lab procedures, diagnostic testing are well documented in the records. The patient was admitted, appropriate home medicines continued. She was started on IV Flagyl. SHE IS ALLERGIC TO LEVAQUIN. We consulted surgery, she was seen by Dr. Meng on behalf of Dr. Dubois and started on Merrem. Overall, she improved. We had dietary educate her on a lap Joseph diet. Her abdominal pain improved. Today, she is stable for dismissal home. Dr. Meng has seen her, they have discussed her going home on Cipro, which she is agreeable to do as well as Flagyl. She will go home on 10 days of Cipro and Flagyl. She will follow up with Dr. Dubois in 2-3 weeks. Follow up with Dr. Reinoso in a week. OBJECTIVE: VITAL SIGNS: Afebrile, pulse 82, respirations 18, blood pressure 149/82. LABORATORY DATA: White count 7, hemoglobin 11.9, platelets are 157. Sodium 139, potassium 3.5, chloride 103, CO2 of 34.5, BUN 3, serum creatinine 0.8. LFTs, bilirubin 0.44, AST 16, ALT 25, alkaline phosphatase 70, albumin is 2.7. Amylase 27, lipase 92. Please refer to med rec. DIAGNOSES: Diverticulitis, leukocytosis, resolved, asthma, hypertension, history of colon cancer, status post laparoscopic Joseph fundoplication. Greater than 30 minutes was spent on this discharge. TRANSINT:[id number] Voice Confirmation ID: [id number] DOCUMENT ID: [id number] Dictated By: KEYONA ROONEY RN I have interviewed/examined the above patient and agree with these documented findings. CINTHIA NGO MD at 0843 CC: DEVYN DUBOIS MD and NIC REINOSO MD [id number] DICTATION DATE: 06/19/16 1459 DESK ASSISTANT: 06/20/16 0613 DIS IN 06/19/16 [facility] [address] [place] [address]
== END 2016-06-19 15:23 | disposition home or self-care (01) | DRG 392 ==
LOC: D.ER 01:23 → D.M2 05:05
PROVIDERS: Family Medicine; ADMIT Family Medicine Adult Medicine
DX: K57.92 Diverticulitis of intestine, part unspecified, without perforation or abscess without bleeding (principal); J45.909 Unspecified asthma, uncomplicated; I10 Essential (primary) hypertension; Z85.038 Personal history of other malignant neoplasm of large intestine

== ENCOUNTER 2016-06-28 15:19 | Emergency (ER) | payer MEDICARE, OTHER ==
[2016-06-17 13:09] VITALS: BMI 24.6
[~2016-06-28 15:19] MED LIST changes: +CIPRO500 MG PO; +FLAGYL500 MG PO; +PROTONIX40 MG PO
[2016-06-28 16:29] LABS: BASOPHILS 0.2 % (0-2); EOSINOPHILS 1.2 % (0-7); HEMATOCRIT 37.9 % (36.0-48.0); HEMOGLOBIN 12.6 g/dL (12-16); IMMATURE GRANULOCYTES 0.3 % (0-5); LYMPHOCYTES 37.6 % (15-50); MCH 31.4 pg (26.0-34.0); MCHC 33.2 g/dL (31.0-37.0); MCV 94.5 fL (80.0-100.0); MEAN PLATELET VOLUME 9.7 fL (7.4-10.4); MONOCYTES 10.2 % (2-11); NEUTROPHILS 50.5 % (40-80); PLATELET COUNT 236 10x3/uL (130-400); RBC 4.01 10x6/uL (4.00-5.40); RDW 14.3 % (11.5-14.5); WBC 5.8 10x3/uL (4.8-10.8)
[2016-06-28 16:38] LABS: APPEARANCE CLEAR (CLEAR); BILIRUBIN NEGATIVE (NEGATIVE); COLOR YELLOW (YELLOW); GLUCOSE NEGATIVE (NEGATIVE); KETONE SMALL mg/dL (NEGATIVE); LEUKOCYTE ESTERASE NEGATIVE (NEGATIVE); NITRITE NEGATIVE (NEGATIVE); PROTEIN NEGATIVE (NEGATIVE); SPECIFIC GRAVITY 1.015 (1.005-1.020); UROBILINOGEN NORMAL (NORMAL)
[2016-06-28 16:39] LABS: BACTERIA FEW /hpf (NONE SEEN); EPITHELIAL CELLS 0-5 /hpf (0-5); RED CELLS - URINE 0-5 /hpf (0-5); WHITE CELLS - URINE 0-5 /hpf (0-5)
[2016-06-28 16:46] LABS: ALBUMIN 3.2 g/dL (3.4-5.0); ALKALINE PHOSPHATASE 63 U/L (46-116); ALT (SGPT) 31 U/L (10-68); BILIRUBIN - TOTAL 0.32 mg/dL (0.2-1.3); CALC OSMOLALITY 271 mosm/kg (275-300); CALCIUM 8.2 mg/dL (8.5-10.1); CARBON DIOXIDE 31.7 mmol/L (21.0-32.0); CHLORIDE - SERUM 102 mmol/L (98-107); CREATININE - SERUM 0.7 mg/dL (0.6-1.3); GLUCOSE 105 mg/dL (74-106); POTASSIUM - SERUM 3.3 mmol/L (3.5-5.1); PROTEIN - SERUM 5.6 g/dL (6.4-8.2); SODIUM 137 mmol/L (136-145); UREA NITROGEN 6 mg/dL (7-18); eGFR NON AFRICAN AMERICAN 86 mL/min (90-120)
== END 2016-06-28 17:40 | disposition home or self-care (01) ==
LOC: D.ER 15:19
PROVIDERS: Nurse Practitioner Family
DX: K29.00 Acute gastritis without bleeding (principal); E86.0 Dehydration; K20.9 Esophagitis, unspecified; C18.9 Malignant neoplasm of colon, unspecified; K21.9 Gastro-esophageal reflux disease without esophagitis; I10 Essential (primary) hypertension

== ENCOUNTER 2016-06-29 16:01 | Inpatient (IN) | payer MEDICARE, OTHER ==
[~2016-06-29] VITALS: Ht 160 cm; Wt 63.5 kg
[2016-06-29 16:34] LABS: BASOPHILS 0.3 % (0-2); EOSINOPHILS 1.1 % (0-7); HEMATOCRIT 38.4 % (36.0-48.0); HEMOGLOBIN 12.9 g/dL (12-16); IMMATURE GRANULOCYTES 0.3 % (0-5); LYMPHOCYTES 37.6 % (15-50); MCH 32.1 pg (26.0-34.0); MCHC 33.6 g/dL (31.0-37.0); MCV 95.5 fL (80.0-100.0); MEAN PLATELET VOLUME 9.9 fL (7.4-10.4); MONOCYTES 9.5 % (2-11); NEUTROPHILS 51.2 % (40-80); PLATELET COUNT 275 10x3/uL (130-400); RBC 4.02 10x6/uL (4.00-5.40); RDW 14.8 % (11.5-14.5); WBC 7.2 10x3/uL (4.8-10.8)
[2016-06-29 16:48] LABS: ALBUMIN 3.3 g/dL (3.4-5.0); BILIRUBIN - TOTAL 0.32 mg/dL (0.2-1.3); CALCIUM 8.5 mg/dL (8.5-10.1); CARBON DIOXIDE 30.3 mmol/L (21.0-32.0); CREATININE - SERUM 0.8 mg/dL (0.6-1.3); POTASSIUM - SERUM 3.3 mmol/L (3.5-5.1); PROTEIN - SERUM 6.2 g/dL (6.4-8.2)
--- NOTE | 2016-06-29 21:00 | NUR ---
REC'D PATIENT IN BED. ALERT AND ORIENTED X4. STATED PAIN WAS AT A 2/10, A BURNING IN HER CHEST FROM THE ACID REFLUX. NO DISTRESS NOTED. IS UP AD EBONY. STATED LAST BM WAS 06/29/16. ABD IS SOFT NON TENDER. STATED SHE HAD A HERNIA REPAIR 6 WEEKS AGO. DENIED FURTHER NEEDS AT THIS TIME. INSTRUCTED TO CALL IF NEEDED ANYTHING. VERBALIZED UNDERSTANDING. BED LOW, LOCKED, CALL LIGHT IN REACH.
[2016-06-29 21:52] VITALS: BP 125/64; BMI 24.8
--- NOTE | 2016-06-29 23:19 | NUR ---
COLLECTED URINE FOR LAB. PATIENT IS RESTING NOW, NO DISTRESS NOTED. IS WANTING TO KNOW IF SHE HAS ANYTHING THAT WILL HELP HER SLEEP. INFORMED HER THERE WAS NOT. INSTRUCTED TO CALL IF NEEDED ANYTHING. BED LOW, LOCKED CALL LIGHT IN REACH.
[2016-06-29 23:29] LABS: APPEARANCE CLEAR (CLEAR); COLOR YELLOW (YELLOW)
[2016-06-29 23:30] LABS: BILIRUBIN NEGATIVE (NEGATIVE); GLUCOSE NEGATIVE (NEGATIVE); KETONE NEGATIVE (NEGATIVE); LEUKOCYTE ESTERASE NEGATIVE (NEGATIVE); NITRITE NEGATIVE (NEGATIVE); PROTEIN NEGATIVE (NEGATIVE); UROBILINOGEN NORMAL (NORMAL)
--- NOTE | 2016-06-30 03:31 | NUR ---
PATIENT COMPLAINING OF BURNING IN HER THROAT DUE TO THE GERD. I ADMINISTERED CARAFATE AND PROTONIX EARLIER IN THE NIGHT AND SHE SAYS THAT IT DID NOT WORK. IS WANTING SOMETHING ELSE. TALKED WITH TOMMY WOODS AND SHE STATED THAT THERE WASNT ANYTHING ELSE BUT TO CALL DR. DUBOIS AND SEE WHAT HE SAYS. CALLED AND HE CALLED ME BACK AND STATED "TELL HER TO RELAX AND GO TO BED, THERE IS NOTHING I CAN GIVE FOR THAT". TOOK HER SOME ICE CHIPS AND LET HER KNOW THAT. WILL CONT TO MONITOR. BED LOW, LOCKED, CALL LIGHT IN REACH.
[2016-06-30 04:00] VITALS: BP 131/72
--- NOTE | 2016-06-30 06:09 | NUR ---
PATIENT IS RESTING IN BED. IS STILL COMPLAINING OF THE BURNING IN HER THROAT. NO DISTRESS NOTED. DENIED FURTHER NEEDS AT THIS TIME. INSTRUCTED TO CALL IF NEEDED ANYTHING. VERBALIZED UNDERSTANDING. BED LOW, LOCKED, CALL LIGHT IN REACH.
--- NOTE | 2016-06-30 07:15 | NUR ---
REPORT RECEIVED FROM AG SERVICE MANAGER NURSE. CALL LIGHT IN REACH.
[2016-06-30 08:08] VITALS: BP 103/70
--- NOTE | 2016-06-30 08:20 | NUR ---
PATIENT IN LOW BUTLER POSITION RESTING WITH EYES CLOSED. RESPIRATIONS EVEN AND UNLABORED. SIDE RAILS UP X2. BED IN LOW POSITION. CALL LIGHT IN REACH.
--- NOTE | 2016-06-30 09:41 | NUR ---
ASSESSMENT COMPLETED. AM MEDS ADMINISTERED. SCDs APPLIED TO BLE. TO RADIOLOGY VIA WC. CALL LIGHT IN REACH. WILL CONTINUE WITH PLAN OF CARE.
--- NOTE | 2016-06-30 11:40 | NUR ---
LEFT MESSAGE WITH DR. DUBOIS ABOUT PATIENT'S CONCERN WITH HER HOME MED.
[2016-06-30 12:11] VITALS: BP 119/71
[2016-06-30 12:33] VITALS: Ht 160 cm; Wt 63.5 kg
--- NOTE | 2016-06-30 13:13 | NUR ---
ORAL MEDS PO. CALL LIGHT IN REACH.
--- NOTE | 2016-06-30 14:08 | NUR ---
IV RESITED TO RIGHT FA WITH 22 GA X1 STICK PER VALENTINA GUPTA, D/T SWELLING AND REDNESS TO LEFT WRIST IV.
[2016-06-30 15:40] VITALS: BP 146/82
--- NOTE | 2016-06-30 15:43 | NUR ---
NEW MEDS ADMINISTERED PER ORDER.
--- NOTE | 2016-06-30 17:20 | NUR ---
DENIES NEEDS AT THIS TIME. CALL LIGHT IN REACH.
[2016-06-30 19:00] VITALS: BP 130/72
--- NOTE | 2016-06-30 19:50 | NUR ---
ONSENTS SIGNED AND WITNESSED. NPO AFTER MN SIGN PLACED ON DOOR. PERSONAL BELONGINGS SHEET SIGNED BY PATIENT. NO CHANGES IN INITIAL ASSESSMENT. SCDs OFFF AT THIS TIME. CALL LIGHT IN REACH. WILL CONTINUE WITH PLAN OF CARE.
--- NOTE | 2016-06-30 20:54 | NUR ---
PATIENT RESTING IN BED. ALERT AND ORIENTED. NO SIGNS OF DISTRESS NOTED. SCHEDULED MEDS GIVEN. SHIFT ASSESSMENT COMPLETED. DENIES ANY NEEDS AT THIS TIME. BED LOW. CALL LIGHT IN REACH.
[2016-07-01 04:00] VITALS: BP 126/69
--- NOTE | 2016-07-01 07:30 | NUR ---
PT ASSESSMENT COMPLETE ON AM ROUNDS. PT AWAKE AND ALERT ORINETD X 3 VERY STRESSED AND FRUSTRATED STATES I JUST WANT TO BE BETTER. PT SPOUSE AT BEDSIDE NPO FOR EGD THIS AM WITH DR DUBOIS
[2016-07-01 08:30] VITALS: BP 141/82
[2016-07-01 12:18] VITALS: BP 157/86
--- NOTE | 2016-07-01 14:47 | NUR ---
Patient Name: CARMELO ABDALLA Admission Status: ER Accout number: [id number] Admission Date: 07-01-2016 : 1940 Admission Diagnosis: Attending: DILEEP Current LOS: 1 Anticipated DC Date: 07-02-2016 Planned Disposition: Home Primary Insurance: MEDICARE A & B Discharge Planning Comments: CM MET WITH PATIENT REGARDING D/C NEEDS AND PLANS. PATIENT STATED SHE LIVES AT HOME WITH HER SPOUSE AND HE WILL DRIVE HER HOME AT DISCHARGE. PATIENT STATED THERE ARE NO STEPS OR STAIRS AT HER HOME. PATIENT IS INDEPENDENT WITH HER CARE AND HAS NO DME AT HOME. PATIENTS PCP IS DR. REINOSO AND PHARMACY IS [facility] AT THE [facility]. PATIENT HAS NOT HAD HOME HEALTH RECENTLY AND HAS REFUSED IT. CM WILL CONTINUE TO FOLLOW PATIENT WITH D/C NEEDS AND PLANS. PCP DR. ARLETH DOCKERY AT [facility]- [phone] [facility] [phone] Importer Exporter: Miguelina Ferreira Is the patient Alert and Oriented? Yes 0 * How many steps to enter\exit or inside your home? 0 0 * PCP DR. REINOSO 0 * Pharmacy [facility] 0 * Preadmission Environment Home with Family 0 * ADLs Independent 0 * Equipment None 0 * List name and contact numbers for known caregivers / representatives who currently or will assist patient after discharge: NIC (SPOUSE) [phone] 0 * Community resources currently utilized None 0 * Additional services required to return to the preadmission environment? Yes 0 * Can the patient safely return to the preadmission environment? Yes 0 * Has this patient been hospitalized within the prior 30 days at any hospital? Yes 0 Grand Total: 0
[2016-07-01 15:58] VITALS: BP 153/79
--- NOTE | 2016-07-01 18:42 | NUR ---
NO ACUTE DISTRESS NOTED VOICES ALL NEEDS TO STAFF CALL LIGHT INREACH SIDE RIALS UP X2
[2016-07-01 19:00] VITALS: BP 141/79
--- NOTE | 2016-07-01 19:00 | NUR ---
LYING IN BED,WITHOUT DISTRESS.CALL LIGHT IN REACH
--- NOTE | 2016-07-01 20:53 | NUR ---
PATIENT RESTING IN BED WITH EYES CLOSED. NO SIGNS OF DISTRESS NOTED. ALERT AND ORIENTED SCHEDULED MEDS GIVEN. SHIFT ASSESSMENT COMPLETED. DENIES ANY NEEDS AT THIS TIME. BED LOW. CALL LIGHT IN REACH
--- NOTE | 2016-07-02 03:00 | NUR ---
IV NOTED SWOLLEN AT SITE. PATIENT REPORTS SOME PAIN WHEN TOUCHED. IV DCD WITH CATH TIP INTACT. PATIENT REFUSES TO HAVE NEW IV PLACED AT THIS TIME.
[2016-07-02 04:00] VITALS: BP 146/89
--- NOTE | 2016-07-02 04:17 | NUR ---
EYES CLOSED RESPIRATIONS WITH EASE AND UNLABORED. SR UP X2 CALL LIGHT WITHIN REACH.
--- NOTE | 2016-07-02 07:00 | NUR ---
REPORT RECEIVED FROM SOCK BOARDER NURSE. CALL LIGHT IN REACH.
[2016-07-02 07:48] VITALS: BP 153/97
[2016-07-02] MEDS ORDERED: DIFLUCAN200 MG PO (08:08)
[2016-07-02] MEDS ORDERED: ATIVAN1 MG PO (08:08)
--- NOTE | 2016-07-02 08:09 | OP ---
PATIENT NAME: CARMELO ABDALLA MEDICAL RECORD: [id number] :[birth year] LOCATION:D.MS [id number] ADMISSION DATE:07/01/16 SURGEON: GUY DUBOIS MD DATE OF OPERATION: 07/01/2016 PREOPERATIVE DIAGNOSES: 1. Dysphagia, status post laparoscopic Joseph with hiatal hernia repair, 6 weeks ago. 2. Oropharyngeal thrush. 3. Hypertension. POSTOPERATIVE DIAGNOSES: 1. Dysphagia, status post laparoscopic Joseph with hiatal hernia repair, 6 weeks ago. 2. Oropharyngeal thrush. 3. Hypertension PROCEDURE: EGD. SURGEON: Guy Dubois MD REPORT OF PROCEDURE: An Olympus endoscope was advanced through the mouth and esophagus. We were able to pass easily through the GE junction through the Joseph wrap. We traversed the stomach and went in to the pylorus and entered the second portion of the duodenum. The duodenum itself appeared to be normal with no ulcerations or masses. As we pulled back, the stomach appeared to be normal in appearance with no masses, lesions or ulcerations. There was no sign of any acute gastritis. A retroflexed view showed that the patient's Joseph wrap was in good position and still appeared to be tight. As we pulled back into the distal esophagus, there was still some inflammatory ulcerations present in the distal esophagus, but these were right at the GE junction and did not extend up further than a centimeter. As we pulled back looking at the mid and proximal esophagus, this appeared to be completely normal other than a few small pinhead size areas of candidiasis. These were able to be irrigated off, showing no underlying ulcerations. As we pulled back into the oropharynx, I could see oral candidiasis. We then advanced the scope back into the stomach and again easily passed into the patient's stomach through the GE junction. We removed any insufflation we could at that point. At this point, the endoscope was removed. COMPLICATIONS: None. CONDITION: Stable. ANESTHESIA: TIVA. BLOOD LOSS: Minimal. TRANSINT:[id number] Voice Confirmation ID: [id number] DOCUMENT ID: [id number] OPERATIVE REPORT [id number] RMCARMELO MOSSGUY ROSE MD at 0809 CC: [id number] DICTATION DATE: 07/01/16 1344 PERINATOLOGY PHYSICIAN: 07/01/16 1413 ADM IN [facility] [address] [facility], [facility]
--- NOTE | 2016-07-02 08:30 | NUR ---
PT UP AD EBONY AND HOPEFUL FOR A DISCHARGE HOME THIS AM. RESPIRATIONS EVEN AND NON LABORED. DENIES NEEDS OR PAIN AT PRESENT TIME. WILL CONTINUE WITH PLAN OF CARE.
--- NOTE | 2016-07-02 08:56 | NUR ---
ASSESSMENT COMPLETED. AM MEDS ADMINISTERED. UNABLE TO GIVE IV MEDS D/T NO IV ACCESS. REFUSES SCDs. CALL LIGHT IN REACH. WILL CONTINUE WITH PLAN OF CARE.
--- NOTE | 2016-07-02 09:55 | NUR ---
DC INSTRUCTIONS EXPLAINED TO PATIENT AND . VERBALIZED UNDERSTANDING. RX FOR ATIVAN GIVEN TO PATIENT. DC'D TO VEHICLE VIA WC WITH .
--- NOTE | 2016-07-02 10:18 | NUR ---
07/02/2016 10:14 DCP: Discharge Planning DISCHARGE NOTE: DISCHARGE ORDER RECEIVED, CM MET WITH PATIENT TO FOLLOW UP WITH PT, PT DENIES ANY NEEDS FROM CM
== END 2016-07-02 09:55 | disposition home or self-care (01) | DRG 158 ==
LOC: D.ER 16:01 → D.MS 20:22 → OBSVTIME 20:24 → D.MS 07-01 13:31
PROVIDERS: Emergency Medicine; ADMIT Surgery
PROC: 0DJ08ZZ Inspection of Upper Intestinal Tract, Via Natural or Artificial Opening Endoscopic (ICD-10-PCS; principal; 2016-07-01 10:00)
DX: B37.0 Candidal stomatitis (principal); K22.10 Ulcer of esophagus without bleeding; R13.10 Dysphagia, unspecified; K21.9 Gastro-esophageal reflux disease without esophagitis; I10 Essential (primary) hypertension; J45.909 Unspecified asthma, uncomplicated; K22.4 Dyskinesia of esophagus

== ENCOUNTER → 2016-07-09 14:04 | Outpatient (CLI) | payer MEDICARE, OTHER ==
[2016-06-30 12:33] VITALS: BMI 24.8
[~2016-07-09 14:04] MED LIST changes: +ATIVAN1 MG PO; +DIFLUCAN200 MG PO
[2016-07-09 14:39] LABS: BASOPHILS 0.6 % (0-2); EOSINOPHILS 0.9 % (0-7); HEMATOCRIT 39.4 % (36.0-48.0); HEMOGLOBIN 13.4 g/dL (12-16); IMMATURE GRANULOCYTES 0.3 % (0-5); MCH 32.5 pg (26.0-34.0); MCV 95.6 fL (80.0-100.0); MEAN PLATELET VOLUME 10.5 fL (7.4-10.4); MONOCYTES 9.8 % (2-11); NEUTROPHILS 49.4 % (40-80); PLATELET COUNT 284 10x3/uL (130-400); RBC 4.12 10x6/uL (4.00-5.40); RDW 14.8 % (11.5-14.5); WBC 6.6 10x3/uL (4.8-10.8)
[2016-07-09 15:15] LABS: ANION GAP 12.3 mmol/L (8-16); CALCIUM 9.8 mg/dL (8.5-10.1); CREATININE - SERUM 0.9 mg/dL (0.6-1.3); MAGNESIUM - SERUM 1.9 mg/dL (1.8-2.4); PHOSPHOROUS 4.2 mg/dL (2.5-4.9); POTASSIUM - SERUM 4.3 mmol/L (3.5-5.1)
== END | disposition home or self-care (01) ==
LOC: D.LAB 14:04
PROVIDERS: Surgery
DX: R00.0 Tachycardia, unspecified (principal); B37.9 Candidiasis, unspecified

== ENCOUNTER 2016-07-18 10:47 | Inpatient (IN) | payer MEDICARE, OTHER ==
[~2016-07-18] VITALS: Ht 158.8 cm; Wt 63.7 kg
--- NOTE | ~2016-07-18 | DS ---
PATIENT:CARMELO ABDALLA :[birth year] MEDICAL RECORD: [id number] DISCHARGE SUMMARY ADMISSION DATE: 07/18/16 DISCHARGE DATE: DATE OF ADMISSION: 06/29/2016. DATE OF DISCHARGE: 07/02/2016. ADMISSION DIAGNOSES: 1. Dysphagia status post laparoscopic Joseph. 2. Oral and esophageal thrush. 3. Hypertension. 4. Asthma. DISCHARGE DIAGNOSIS: 1. Dysphagia status post laparoscopic Joseph. 2. Oral and esophageal thrush. 3. Hypertension. 4. Asthma. PROCEDURE: EGD with dilatation on 07/01/2016. REPORT OF HOSPITALIZATION: The patient was admitted to the hospital with severe dysphagia with difficulty keeping down any even liquids. The patient was noted to have oral thrush, which she was already being treated for with Nystatin swish and swallow. She reported a burning acidy type sensation in the back of her throat and chest and reported esophageal spasms. The patient was treated with oral Diflucan along with continued treatment with Nystatin. The patient's thrush improved during her hospitalization. She was eventually taken to the GI suite where she underwent an EGD with dilatation of the GE junction. Following this, she was tolerating the diet very well and was no longer having a sensation that food was getting hung up and the pain in her chest and improved. She still had some occasional twinges pain in the chest, which she described as spasms. These were treated with p.o. Ativan and seemed to be helping her symptoms. At that point, she was felt to be stable for discharge home. DISCHARGE INSTRUCTIONS: Return to clinic or call with any questions or concerns, fevers, chills, nausea, vomiting or worsening abdominal pain. FOLLOWUP: In clinic with me in 1-2 weeks. DISCHARGE MEDICATIONS: Resume levothyroxine, doxazosin, simvastatin, Dyazide, vitamin D2, vitamin B12, multivitamins, probiotics and calcium 500 and vitamin D3 tablets including Ativan 1 mg p.o. q.6 hours p.r.n. spasms and Diflucan 200 mg p.o. daily. The patient was told to stop her Cipro, Flagyl and Protonix. DIET: Soft pureed diet with advancing to regular as tolerated. DISCHARGE SUMMARY REPORT [id number] CARMELO ABDALLA TRANSINT:[id number] Voice Confirmation ID: [id number] DOCUMENT ID: [id number] DEVYN DUBOIS MD CC: [id number] DICTATION DATE: 07/18/16 1311 PHYSICAL THERAPY ASSISTANT: 07/19/16 0237 ADM IN [facility] [address] [id number]
[2016-07-18 11:17] LABS: BASOPHILS 0.5 % (0-2); EOSINOPHILS 0.7 % (0-7); HEMATOCRIT 41.8 % (36.0-48.0); HEMOGLOBIN 14.6 g/dL (12-16); IMMATURE GRANULOCYTES 0.1 % (0-5); LYMPHOCYTES 44.3 % (15-50); MCH 32.8 pg (26.0-34.0); MCHC 34.9 g/dL (31.0-37.0); MCV 93.9 fL (80.0-100.0); MEAN PLATELET VOLUME 11.1 fL (7.4-10.4); MONOCYTES 8.9 % (2-11); NEUTROPHILS 45.5 % (40-80); RBC 4.45 10x6/uL (4.00-5.40); RDW 14.4 % (11.5-14.5); WBC 7.5 10x3/uL (4.8-10.8)
[2016-07-18 11:36] LABS: ALBUMIN 3.8 g/dL (3.4-5.0); ALKALINE PHOSPHATASE 90 U/L (46-116); ALT (SGPT) 41 U/L (10-68); BILIRUBIN - TOTAL 0.46 mg/dL (0.2-1.3); CALC OSMOLALITY 278 mosm/kg (275-300); CALCIUM 9.6 mg/dL (8.5-10.1); CARBON DIOXIDE 28.5 mmol/L (21.0-32.0); CHLORIDE - SERUM 99 mmol/L (98-107); CREATININE - SERUM 0.9 mg/dL (0.6-1.3); GLUCOSE 142 mg/dL (74-106); POTASSIUM - SERUM 3.1 mmol/L (3.5-5.1); PROTEIN - SERUM 7.3 g/dL (6.4-8.2); SODIUM 139 mmol/L (136-145); UREA NITROGEN 11 mg/dL (7-18); eGFR NON AFRICAN AMERICAN 64 mL/min (90-120)
[2016-07-18 11:38] LABS: C-REACTIVE PROTEIN < 0.2 mg/dL (0.0-0.9)
[2016-07-18 11:46] LABS: APPEARANCE CLEAR (CLEAR); BACTERIA FEW /hpf (NONE SEEN); BILIRUBIN NEGATIVE (NEGATIVE); COLOR YELLOW (YELLOW); EPITHELIAL CELLS 0-5 /hpf (0-5); GLUCOSE NEGATIVE (NEGATIVE); KETONE NEGATIVE (NEGATIVE); LEUKOCYTE ESTERASE 1+ (NEGATIVE); MUCUS <1+ /lpf (NONE SEEN); NITRITE NEGATIVE (NEGATIVE); PROTEIN NEGATIVE (NEGATIVE); RED CELLS - URINE RARE /hpf (0-5); SPECIFIC GRAVITY 1.005 (1.005-1.020); UROBILINOGEN NORMAL (NORMAL); WHITE CELLS - URINE 0-5 /hpf (0-5)
[2016-07-18 12:20] LABS: PLATELET COUNT 201 10x3/uL (130-400)
[2016-07-18] MEDS ORDERED: NYSTATIN ORAL SU5 ML PO (16:06)
[2016-07-18 16:20] VITALS: BP 132/83; BMI 24.1
[2016-07-18 20:00] VITALS: BP 126/72
--- NOTE | 2016-07-18 20:27 | NUR ---
RECEIVED CALL BACK FROM DR CEVALLOS RE: PATIENT'S REQUEST FOR P.M. HOME MEDICATION CARDURA, SIVASTATIN AND A.M. LEVOTHYROXINE. ORDER GIVEN.
--- NOTE | 2016-07-18 21:30 | NUR ---
RETURNING TO BED FROM BATHROOM. ADMIN PO MEDS. DENIES ANY OTHER NEEDS.
[2016-07-19] VITALS: BP 114/68
--- NOTE | 2016-07-19 00:05 | NUR ---
ADMIN MORPHINE 4MG IV PER REQUEST FOR C/O ABD PAIN.
[2016-07-19 04:00] VITALS: BP 118/65
[2016-07-19 05:31] LABS: CALCIUM 8.5 mg/dL (8.5-10.1); CHLORIDE - SERUM 103 mmol/L (98-107); CREATININE - SERUM 0.7 mg/dL (0.6-1.3); GLUCOSE 108 mg/dL (74-106); MAGNESIUM - SERUM 1.8 mg/dL (1.8-2.4); SODIUM 141 mmol/L (136-145); eGFR NON AFRICAN AMERICAN 86 mL/min (90-120)
[2016-07-19 05:42] LABS: CALC OSMOLALITY 279 mosm/kg (275-300); POTASSIUM - SERUM 3.7 mmol/L (3.5-5.1); UREA NITROGEN 8 mg/dL (7-18)
--- NOTE | 2016-07-19 07:00 | NUR ---
PT REC'D FROM TOMMY RAMSEY. RESTING IN BED WITH BREAKFAST TRAY IN ROOM. AAOX4. PIV TO L FA FREE OF REDNESS AND SWELLING. RATING CURRENT PAIN IN ABD AND NECK 8/10. BOWEL SOUNDS ACTIVE X4 QUADRANTS. +1 EDEMA TO BILAT LE. BED LOW, CALL LIGHT IN REACH, DENIES NEEDS. CPOC.
[2016-07-19 07:49] VITALS: BP 122/69
[2016-07-19 09:03] LABS: BASOPHILS 0.8 % (0-2); EOSINOPHILS 1.5 % (0-7); HEMATOCRIT 36.3 % (36.0-48.0); IMMATURE GRANULOCYTES 0.2 % (0-5); LYMPHOCYTES 41.9 % (15-50); MCH 32.2 pg (26.0-34.0); MCHC 33.1 g/dL (31.0-37.0); MONOCYTES 12.6 % (2-11); PLATELET COUNT 168 10x3/uL (130-400); RBC 3.73 10x6/uL (4.00-5.40); RDW 14.9 % (11.5-14.5)
[2016-07-19 09:04] LABS: MCV 97.3 fL (80.0-100.0); WBC 5.3 10x3/uL (4.8-10.8)
[2016-07-19 12:14] VITALS: Ht 158.8 cm; Wt 63.7 kg
[2016-07-19 12:18] VITALS: BP 127/69
--- NOTE | 2016-07-19 12:30 | NUR ---
HOME MEDS RESTARTED AND AMDINISTERED AT THIS TIME. PRN MORPHINE ADMINISTERED PER PT COMPLAINTS OF 8/10 STOMACH PAIN. WILL REASSESS. BED LOW, CALL LIGHT IN REACH, DENIES NEEDS. CPOC.
--- NOTE | 2016-07-19 14:15 | NUR ---
PT COMPLAINTS OF ESOPHAGEAL SPASM. PRN ATIVAN ADMINSTERED PER ORDERS. BED LOW, CALL LIGHT IN REACH, DENIES NEEDS. CPOC.
[2016-07-19 14:43] VITALS: BP 116/59
--- NOTE | 2016-07-19 16:35 | NUR ---
PT AOX4 RESP EVEN AND NONLABORED PT HERE FOR NAUSEA AND VOMITING AND ABDOMINAL PAIN. IV TO LEFT FOREARM PATENT AND INTACT PT DENIES NEEDS AT THIS TIME SRX2 BED AT LOWEST SETTING WILL CONTINUE TO MONITOR
--- NOTE | 2016-07-19 18:14 | NUR ---
STOOL SAMPLE COLLECTED AND SENT TO LAB.
--- NOTE | 2016-07-19 19:00 | NUR ---
PATIENT IN BED WATCHING TV. HOB 30 DEGREES. AAOX4. RR EVEN AND UNLABORED. 0 S/S OF DISTRESS. STATES PAIN IS A 7/10. IV TO LEFT FA SWOLLEN. FLUIDS STOPPED. TELEMETRY ON. DAUGHTER AT BEDSIDE. SRX2. BED LOW. CALL LIGHT WITHIN REACH.
[2016-07-19 20:00] VITALS: BP 130/78
--- NOTE | 2016-07-19 20:35 | NUR ---
RESITED IV TO LEFT FA. NIGHTTIME MEDICATION ADMINISTERED. MORPHINE GIVEN FOR PAIN AND ATIVAN GIVEN FOR SPASMS.
[2016-07-20] VITALS: BP 96/51
--- NOTE | 2016-07-20 01:31 | NUR ---
PATIENT SLEEPING WITH NO DISTRESS NOTED. CALL LIGHT WITHIN REACH.
[2016-07-20 04:00] VITALS: BP 116/79
[2016-07-20 07:09] LABS: BASOPHILS 0.4 % (0-2); EOSINOPHILS 1.7 % (0-7); HEMATOCRIT 35.8 % (36.0-48.0); IMMATURE GRANULOCYTES 0.2 % (0-5); LYMPHOCYTES 40.1 % (15-50); MCH 32.6 pg (26.0-34.0); MCHC 33.5 g/dL (31.0-37.0); MCV 97.3 fL (80.0-100.0); MONOCYTES 12.9 % (2-11); NEUTROPHILS 44.7 % (40-80); PLATELET COUNT 135 10x3/uL (130-400); RBC 3.68 10x6/uL (4.00-5.40); RDW 14.9 % (11.5-14.5); WBC 5.3 10x3/uL (4.8-10.8)
--- NOTE | 2016-07-20 07:15 | NUR ---
PT RESTING IN BED WATCHING TV. AAOX4. PIV TO L FA FREE OF REDNESS AND SWELLING. BOWEL SOUNDS ACTIVE X4 QUADRANTS. ASKING FOR PRN ATIVAN. STATED I WOULD ADMINISTER IT WITH AM MEDS. PT AGREES AND HAS NO QUESTIONS OR CONCERNS AT THIS TIME. BED LOW, CALL LIGHT IN REACH, DENIES NEEDS. CPOC.
[2016-07-20 07:33] LABS: ALBUMIN 2.9 g/dL (3.4-5.0); ALKALINE PHOSPHATASE 67 U/L (46-116); ALT (SGPT) 32 U/L (10-68); BILIRUBIN - TOTAL 0.42 mg/dL (0.2-1.3); CALC OSMOLALITY 281 mosm/kg (275-300); CALCIUM 8.5 mg/dL (8.5-10.1); CARBON DIOXIDE 32.2 mmol/L (21.0-32.0); CHLORIDE - SERUM 105 mmol/L (98-107); CREATININE - SERUM 0.7 mg/dL (0.6-1.3); GLUCOSE 115 mg/dL (74-106); POTASSIUM - SERUM 3.5 mmol/L (3.5-5.1); PROTEIN - SERUM 5.6 g/dL (6.4-8.2); SODIUM 142 mmol/L (136-145); UREA NITROGEN 6 mg/dL (7-18); eGFR NON AFRICAN AMERICAN 86 mL/min (90-120)
[2016-07-20 08:23] VITALS: BP 117/69
--- NOTE | 2016-07-20 11:15 | NUR ---
VISITING WITH FAMILY. DENIES ANY NEEDS AT THIS TIME.
[2016-07-20 12:55] VITALS: BP 116/70
[2016-07-20 15:29] VITALS: BP 115/69
[2016-07-20 19:00] VITALS: BP 97/57
--- NOTE | 2016-07-20 19:00 | NUR ---
PATIENT RESTING ON LEFT SIDE WITH EYES CLOSED. HOB 10 DEGREES. AROUSES TO VOICE. ORIENTED X4. RR EVEN AND UNLABORED. 0 S/S OF DISTRESS. STATES PAIN IS A 6/10. IV TO LEFT FA PATENT WITH NO REDNESS OR SWELLING. SCD'S IN ROOM BUT OFF.TELEMETRY ON. SRX2. BED LOW. CALL LIGHT WITHIN REACH.
--- NOTE | 2016-07-20 21:00 | NUR ---
NGIHTTIME MEDICATION ADMINISTERED PER ORDER.
[2016-07-21] VITALS: BP 117/71
[2016-07-21 04:00] VITALS: BP 127/72
--- NOTE | 2016-07-21 06:22 | NUR ---
PATIENT AMBULATED IN HALLWAY, NOW BACK IN BED. ATIVAN GIVEN FOR SPASMS AND ZOFRAN GIVEN FOR NAUSEA. NO OTHER NEEDS AT THIS TIME.
[2016-07-21 07:45] VITALS: BP 118/70
--- NOTE | 2016-07-21 11:20 | NUR ---
* Is the patient Alert and Oriented? Yes 0 * How many steps to enter\exit or inside your home? 0 0 * PCP pullig 0 * Pharmacy [facility] IN [place] 0 * Preadmission Environment Home with Family 0 * ADLs Independent 0 * Equipment None 0 * List name and contact numbers for known caregivers / representatives who currently or will assist patient after discharge: SPOUSE- HASEEB Hu [phone] 0 * Community resources currently utilized None 0 * Additional services required to return to the preadmission environment? Yes 0 * Can the patient safely return to the preadmission environment? Yes 0 * Has this patient been hospitalized within the prior 30 days at any hospital? Yes 0 Grand Total: 0 Patient Name: CARMELO ABDALLA Admission Status: ER Accout number: [id number] Admission Date: 07-18-2016 : 1940 Admission Diagnosis: Attending: NEVIN Current LOS: 3 Anticipated DC Date: 07-21-2016 Planned Disposition: Home with Home Health Primary Insurance: MEDICARE A & B Discharge Planning Comments: CM met with patient to assess discharge planning needs. Patient currently lives with her Haseeb ([phone]) in a home without any steps and feels like it is safe to return home. Patient is independent. Discussed with patient the option of home health. She is agreeable to services. Patient chose [facility] and ERIC signed and placed in chart. Referral faxed and called. Patient is discharging today with her to drive her home. Gold Nib Grinder: Shruti Flaherty
[2016-07-21 11:26] VITALS: BP 119/69
--- NOTE | 2016-07-21 12:05 | NUR ---
DISCHARGE INSTRUCTIONS COMPLETED WITH PATIENT. D/C IV WITH CATHETER INTACT.
== END 2016-07-21 12:08 | disposition home or self-care (01) | DRG 392 ==
LOC: D.ER 10:47 → D.MS 14:24 → OBSVTIME 14:24 → D.MS 14:24
PROVIDERS: Emergency Medicine; Internal Medicine Gastroenterology; ADMIT Family Medicine
DX: K57.92 Diverticulitis of intestine, part unspecified, without perforation or abscess without bleeding (principal); B37.81 Candidal esophagitis; B37.0 Candidal stomatitis; E87.6 Hypokalemia; I10 Essential (primary) hypertension; J45.909 Unspecified asthma, uncomplicated; K58.9 Irritable bowel syndrome, unspecified

== ENCOUNTER 2016-10-20 11:35 | Inpatient (IN) | payer MEDICARE, OTHER ==
[~2016-10-20] VITALS: Ht 158.8 cm; Wt 64.1 kg
[~2016-10-20 11:35] MED LIST changes: +NYSTATIN ORAL SU5 ML PO
[2016-10-20 12:49] LABS: BASOPHILS 0.2 % (0-2); EOSINOPHILS 0.8 % (0-7); HEMOGLOBIN 11.9 g/dL (12-16); IMMATURE GRANULOCYTES 0.1 % (0-5); LYMPHOCYTES 23.8 % (15-50); MCH 32.3 pg (26.0-34.0); MCV 95.1 fL (80.0-100.0); MEAN PLATELET VOLUME 10.5 fL (7.4-10.4); MONOCYTES 10.1 % (2-11); RBC 3.68 10x6/uL (4.00-5.40); RDW 13.4 % (11.5-14.5); WBC 9.1 10x3/uL (4.8-10.8)
[2016-10-20 12:54] LABS: ALBUMIN 3.2 g/dL (3.4-5.0); ANION GAP 9.4 mmol/L (8-16); BILIRUBIN - TOTAL 1.08 mg/dL (0.2-1.3); CALCIUM 8.7 mg/dL (8.5-10.1); CARBON DIOXIDE 31.6 mmol/L (21.0-32.0); CREATININE - SERUM 0.8 mg/dL (0.6-1.3); PROTEIN - SERUM 6.7 g/dL (6.4-8.2)
[2016-10-20 12:58] LABS: PLATELET COUNT 190 10x3/uL (130-400)
[2016-10-20 13:17] LABS: APPEARANCE CLEAR (CLEAR); BACTERIA FEW /hpf (NONE SEEN); BILIRUBIN NEGATIVE (NEGATIVE); COLOR YELLOW (YELLOW); EPITHELIAL CELLS 0-5 /hpf (0-5); GLUCOSE NEGATIVE (NEGATIVE); KETONE NEGATIVE (NEGATIVE); LEUKOCYTE ESTERASE TRACE (NEGATIVE); NITRITE NEGATIVE (NEGATIVE); PROTEIN NEGATIVE (NEGATIVE); UROBILINOGEN NORMAL (NORMAL); WHITE CELLS - URINE OCC /hpf (0-5)
[2016-10-20 15:14] VITALS: BP 111/63; BMI 24.3
[2016-10-20] MEDS ORDERED: CARAFATE1 G PO (15:21)
[2016-10-20] MEDS ORDERED: SINGULAIR10 MG PO (15:21)
[2016-10-20] MEDS ORDERED: FLUTICASONE PRO16 GM NASAL (15:22)
[2016-10-20] MEDS ORDERED: PROAIR HFA8.5 GM INH (15:22)
[2016-10-20 16:36] VITALS: BP 111/63
[2016-10-20 16:59] VITALS: BP 111/63
[2016-10-20 20:00] VITALS: BP 101/61
[2016-10-21] VITALS: BP 88/42
[2016-10-21 04:00] VITALS: BP 102/57
[2016-10-21 08:18] VITALS: BP 101/58
[2016-10-21 09:59] LABS: BASOPHILS 0.3 % (0-2); EOSINOPHILS 1.4 % (0-7); HEMATOCRIT 34.6 % (36.0-48.0); HEMOGLOBIN 11.7 g/dL (12-16); IMMATURE GRANULOCYTES 0.1 % (0-5); LYMPHOCYTES 28.8 % (15-50); MCH 32.6 pg (26.0-34.0); MCHC 33.8 g/dL (31.0-37.0); MCV 96.4 fL (80.0-100.0); MEAN PLATELET VOLUME 10.8 fL (7.4-10.4); MONOCYTES 12.2 % (2-11); NEUTROPHILS 57.2 % (40-80); PLATELET COUNT 190 10x3/uL (130-400); RBC 3.59 10x6/uL (4.00-5.40); RDW 13.6 % (11.5-14.5)
[2016-10-21 10:22] LABS: ALBUMIN 3.1 g/dL (3.4-5.0); ANION GAP 9.2 mmol/L (8-16); BILIRUBIN - TOTAL 0.7 mg/dL (0.2-1.3); CARBON DIOXIDE 32.2 mmol/L (21.0-32.0); CREATININE - SERUM 0.8 mg/dL (0.6-1.3); POTASSIUM - SERUM 3.4 mmol/L (3.5-5.1); PROTEIN - SERUM 6.3 g/dL (6.4-8.2)
[2016-10-21 12:44] VITALS: BP 119/63
[2016-10-21 13:46] VITALS: Ht 158.8 cm; Wt 64.1 kg
[2016-10-21 16:28] VITALS: BP 103/54
[2016-10-21 20:00] VITALS: BP 104/60
[2016-10-22 04:00] VITALS: BP 97/56
[2016-10-22 06:05] LABS: BASOPHILS 0.4 % (0-2); EOSINOPHILS 1.8 % (0-7); HEMATOCRIT 34.2 % (36.0-48.0); LYMPHOCYTES 26.9 % (15-50); MCH 31.4 pg (26.0-34.0); MCHC 32.2 g/dL (31.0-37.0); MCV 97.7 fL (80.0-100.0); MEAN PLATELET VOLUME 11.1 fL (7.4-10.4); NEUTROPHILS 60.9 % (40-80); RDW 13.6 % (11.5-14.5)
[2016-10-22 06:17] LABS: PLATELET COUNT 133 10x3/uL (130-400)
[2016-10-22 06:38] LABS: ALBUMIN 2.7 g/dL (3.4-5.0); ALKALINE PHOSPHATASE 122 U/L (46-116); CALC OSMOLALITY 284 mosm/kg (275-300); CALCIUM 8.4 mg/dL (8.5-10.1); CARBON DIOXIDE 31.2 mmol/L (21.0-32.0); CHLORIDE - SERUM 105 mmol/L (98-107); CREATININE - SERUM 0.7 mg/dL (0.6-1.3); GLUCOSE 143 mg/dL (74-106); POTASSIUM - SERUM 3.6 mmol/L (3.5-5.1); PROTEIN - SERUM 5.1 g/dL (6.4-8.2); SODIUM 143 mmol/L (136-145); UREA NITROGEN 6 mg/dL (7-18); eGFR NON AFRICAN AMERICAN 86 mL/min (90-120)
[2016-10-22 06:43] LABS: ALT (SGPT) 37 U/L (10-68)
[2016-10-22 08:19] VITALS: BP 107/64
[2016-10-22 12:00] VITALS: BP 96/50
[2016-10-22 16:17] VITALS: BP 115/64
[2016-10-22 17:12] LABS: APPEARANCE CLEAR (CLEAR); BILIRUBIN NEGATIVE (NEGATIVE); COLOR YELLOW (YELLOW); GLUCOSE NEGATIVE (NEGATIVE); KETONE NEGATIVE (NEGATIVE); LEUKOCYTE ESTERASE TRACE (NEGATIVE); NITRITE NEGATIVE (NEGATIVE); PROTEIN NEGATIVE (NEGATIVE); UROBILINOGEN NORMAL (NORMAL)
[2016-10-22 17:13] LABS: BACTERIA FEW /hpf (NONE SEEN); WHITE CELLS - URINE OCC /hpf (0-5)
[2016-10-22 20:00] VITALS: BP 101/55
[2016-10-23 06:14] LABS: ALBUMIN 2.8 g/dL (3.4-5.0); ANION GAP 13.4 mmol/L (8-16); BILIRUBIN - TOTAL 0.3 mg/dL (0.2-1.3); CALCIUM 8.5 mg/dL (8.5-10.1); CARBON DIOXIDE 25.7 mmol/L (21.0-32.0); POTASSIUM - SERUM 3.1 mmol/L (3.5-5.1); PROTEIN - SERUM 5.2 g/dL (6.4-8.2)
[2016-10-23 06:15] LABS: CREATININE - SERUM 1.2 mg/dL (0.6-1.3)
[2016-10-23 06:24] LABS: BASOPHILS 0.3 % (0-2); EOSINOPHILS 2.5 % (0-7); HEMATOCRIT 33.2 % (36.0-48.0); HEMOGLOBIN 11.2 g/dL (12-16); IMMATURE GRANULOCYTES 0.1 % (0-5); LYMPHOCYTES 17.2 % (15-50); MCH 32.6 pg (26.0-34.0); MCHC 33.7 g/dL (31.0-37.0); MCV 96.5 fL (80.0-100.0); MEAN PLATELET VOLUME 10.6 fL (7.4-10.4); MONOCYTES 14.5 % (2-11); NEUTROPHILS 65.4 % (40-80); RBC 3.44 10x6/uL (4.00-5.40)
[2016-10-23 06:27] LABS: PLATELET COUNT 176 10x3/uL (130-400); WBC 6.8 10x3/uL (4.8-10.8)
[2016-10-23 09:39] VITALS: BP 118/64
[2016-10-23 12:57] VITALS: BP 102/52
[2016-10-23 16:00] LABS: MAGNESIUM - SERUM 1.6 mg/dL (1.8-2.4); PHOSPHOROUS 3.5 mg/dL (2.5-4.9)
[2016-10-23 16:30] VITALS: BP 105/61
[2016-10-23 20:00] VITALS: BP 115/83
[2016-10-24] VITALS: BP 98/59
[2016-10-24 04:00] VITALS: BP 115/61
[2016-10-24 05:29] LABS: BASOPHILS 0.3 % (0-2); EOSINOPHILS 2.1 % (0-7); HEMATOCRIT 33.3 % (36.0-48.0); HEMOGLOBIN 11.1 g/dL (12-16); IMMATURE GRANULOCYTES 0.1 % (0-5); LYMPHOCYTES 19.3 % (15-50); MCH 32.5 pg (26.0-34.0); MCHC 33.3 g/dL (31.0-37.0); MCV 97.4 fL (80.0-100.0); MEAN PLATELET VOLUME 10.7 fL (7.4-10.4); NEUTROPHILS 65.2 % (40-80); PLATELET COUNT 181 10x3/uL (130-400); RBC 3.42 10x6/uL (4.00-5.40)
[2016-10-24 05:55] LABS: ALBUMIN 2.6 g/dL (3.4-5.0); ANION GAP 10.2 mmol/L (8-16); BILIRUBIN - TOTAL 0.4 mg/dL (0.2-1.3); CALCIUM 8.6 mg/dL (8.5-10.1); POTASSIUM - SERUM 3.2 mmol/L (3.5-5.1); PROTEIN - SERUM 5.3 g/dL (6.4-8.2)
[2016-10-24 06:11] LABS: CREATININE - SERUM 2.4 mg/dL (0.6-1.3)
[2016-10-24 09:31] VITALS: BP 187/96
[2016-10-24 12:46] VITALS: BP 132/76
[2016-10-24 16:00] VITALS: BP 133/73
[2016-10-24 20:00] VITALS: BP 116/61
[2016-10-25] VITALS: BP 129/70
[2016-10-25 04:00] VITALS: BP 134/70
[2016-10-25 07:01] LABS: BASOPHILS 0.3 % (0-2); EOSINOPHILS 2.2 % (0-7); HEMATOCRIT 34.3 % (36.0-48.0); HEMOGLOBIN 11.4 g/dL (12-16); IMMATURE GRANULOCYTES 0.1 % (0-5); LYMPHOCYTES 26.2 % (15-50); MCHC 33.2 g/dL (31.0-37.0); MCV 96.3 fL (80.0-100.0); MEAN PLATELET VOLUME 10.8 fL (7.4-10.4); MONOCYTES 8.9 % (2-11); NEUTROPHILS 62.3 % (40-80); PLATELET COUNT 190 10x3/uL (130-400); RBC 3.56 10x6/uL (4.00-5.40); RDW 13.9 % (11.5-14.5); WBC 7.6 10x3/uL (4.8-10.8)
[2016-10-25 07:20] LABS: ALBUMIN 2.8 g/dL (3.4-5.0); ANION GAP 10.2 mmol/L (8-16); BILIRUBIN - TOTAL 0.3 mg/dL (0.2-1.3); CALCIUM 9.2 mg/dL (8.5-10.1); CARBON DIOXIDE 27.4 mmol/L (21.0-32.0); CREATININE - SERUM 2.7 mg/dL (0.6-1.3); POTASSIUM - SERUM 3.6 mmol/L (3.5-5.1); PROTEIN - SERUM 5.8 g/dL (6.4-8.2)
[2016-10-25 08:00] VITALS: BP 140/79
[2016-10-25] MEDS ORDERED: FLAGYL500 MG PO (09:23)
[2016-10-25] MEDS ORDERED: BACTRIM DS TABL1 TAB PO (09:23)
== END 2016-10-25 12:13 | disposition home or self-care (01) | DRG 392 ==
LOC: D.ER 11:35 → D.MS 14:38
PROVIDERS: Emergency Medicine; ADMIT Emergency Medicine
DX: K57.32 Diverticulitis of large intestine without perforation or abscess without bleeding (principal); N17.9 Acute kidney failure, unspecified; B37.0 Candidal stomatitis; I10 Essential (primary) hypertension; K21.9 Gastro-esophageal reflux disease without esophagitis; G47.33 Obstructive sleep apnea (adult) (pediatric); J45.909 Unspecified asthma, uncomplicated; Z85.038 Personal history of other malignant neoplasm of large intestine; Z99.81 Dependence on supplemental oxygen; E87.6 Hypokalemia; R19.7 Diarrhea, unspecified

== ENCOUNTER 2016-11-11 05:50 | Inpatient (IN) | payer MEDICARE, OTHER ==
[2016-11-07 13:48] LABS: BASOPHILS 0.7 % (0-2); EOSINOPHILS 1.4 % (0-7); HEMATOCRIT 37.8 % (36.0-48.0); HEMOGLOBIN 13.1 g/dL (12-16); IMMATURE GRANULOCYTES 0.3 % (0-5); LYMPHOCYTES 43.5 % (15-50); MCH 31.5 pg (26.0-34.0); MCHC 34.7 g/dL (31.0-37.0); MCV 90.9 fL (80.0-100.0); NEUTROPHILS 45.1 % (40-80); RBC 4.16 10x6/uL (4.00-5.40); RDW 13.3 % (11.5-14.5); WBC 7.1 10x3/uL (4.8-10.8)
[2016-11-07 13:51] LABS: PLATELET COUNT 299 10x3/uL (130-400)
[2016-11-07 14:04] LABS: ANION GAP 14.4 mmol/L (8-16); CALCIUM 10.7 mg/dL (8.5-10.1); CARBON DIOXIDE 27.1 mmol/L (21.0-32.0); CREATININE - SERUM 0.8 mg/dL (0.6-1.3)
[2016-11-07 14:07] LABS: POTASSIUM - SERUM 3.5 mmol/L (3.5-5.1)
[2016-11-11] VITALS (7 sets, daily range): BP systolic 108–130; BP diastolic 63–77; BMI 23.8
[~2016-11-11 05:50] MED LIST changes: +BACTRIM DS TABL1 TAB PO; +CARAFATE1 G PO; +FLUTICASONE PRO16 GM NASAL; +NUCYNTA50 MG PO; +ZOFRAN4 MG PO
--- NOTE | 2016-11-11 17:40 | NUR ---
REC'D TO ROOM 2225 VIA STRETCHER ACCOMPAINED BY ER STAFF. AWAKE AND ALERT. RESP EVEN AND UNLABORED WITH NO DISTRESS NOTED. HAS O2 IN USE VIA N/C @ 3 L/M. HAS MIDLINE INCISION WITH DRESSING INTACT WITH BLOOD TINGE STAINS NOTED HAS BAND AIDE TO LAP SITES. F/C INTACT WITH URINE NOTED TO TUBING AND COLLECTIVE DEVICE. POST OP VITALS INITIATED WHICH ARE STABLE. FAMILY AT BEDSIDE. C/L IN REACH AT BEDSIDE.
[2016-11-12] VITALS: BP 123/73
[2016-11-12 02:17] VITALS: BMI 23.6
[2016-11-12 06:02] LABS: BASOPHILS 0 % (0-2); EOSINOPHILS 0.1 % (0-7); HEMATOCRIT 30.1 % (36.0-48.0); HEMOGLOBIN 10.4 g/dL (12-16); IMMATURE GRANULOCYTES 0.4 % (0-5); LYMPHOCYTES 7.5 % (15-50); MCH 32.4 pg (26.0-34.0); MCHC 34.6 g/dL (31.0-37.0); MCV 93.8 fL (80.0-100.0); MONOCYTES 9.2 % (2-11); NEUTROPHILS 82.8 % (40-80); RBC 3.21 10x6/uL (4.00-5.40); RDW 13.6 % (11.5-14.5); WBC 11.2 10x3/uL (4.8-10.8)
[2016-11-12 06:10] LABS: ANION GAP 14.1 mmol/L (8-16); CALCIUM 7.4 mg/dL (8.5-10.1); CARBON DIOXIDE 26.2 mmol/L (21.0-32.0); CREATININE - SERUM 0.9 mg/dL (0.6-1.3); POTASSIUM - SERUM 3.3 mmol/L (3.5-5.1)
[2016-11-12 06:20] LABS: PLATELET COUNT 176 10x3/uL (130-400)
--- NOTE | 2016-11-12 07:40 | NUR ---
PT AOX4 RESP EVEN AND NONLABORED PT DENIES NEEDS AT THIS TIME IV TO RIGHT WRIST PATENT AND INTACT AT THIS TIME SRX2 BED AT LOWEST SETTING CALL LIGHT WITHIN REACH WILL CONTINUE TO MONITOR
[2016-11-12 08:53] VITALS: BP 104/54
[2016-11-12 12:10] VITALS: BMI 23.5
[2016-11-12 12:21] VITALS: BP 98/54
--- NOTE | 2016-11-12 15:18 | NUR ---
ATIVAN AND TORADOL SIVP. VARGAS CATH DC'D WITH TIP INTACT.
[2016-11-12 15:39] VITALS: BP 103/60
[2016-11-12 20:00] VITALS: BP 90/49
[2016-11-13 04:45] VITALS: BP 115/63
--- NOTE | 2016-11-13 04:46 | NUR ---
PATIENT REQUESTED ATIVAN FOR HER ANXIETY
[2016-11-13 05:22] LABS: BASOPHILS 0.2 % (0-2); EOSINOPHILS 1.1 % (0-7); HEMATOCRIT 25.4 % (36.0-48.0); HEMOGLOBIN 8.4 g/dL (12-16); IMMATURE GRANULOCYTES 0.2 % (0-5); LYMPHOCYTES 17.2 % (15-50); MCH 31.6 pg (26.0-34.0); MCHC 33.1 g/dL (31.0-37.0); MCV 95.5 fL (80.0-100.0); MEAN PLATELET VOLUME 10.2 fL (7.4-10.4); MONOCYTES 7.1 % (2-11); NEUTROPHILS 74.2 % (40-80); PLATELET COUNT 181 10x3/uL (130-400); RBC 2.66 10x6/uL (4.00-5.40); RDW 14.3 % (11.5-14.5)
[2016-11-13 05:36] LABS: ANION GAP 9.8 mmol/L (8-16); CARBON DIOXIDE 29.3 mmol/L (21.0-32.0); CREATININE - SERUM 0.9 mg/dL (0.6-1.3); POTASSIUM - SERUM 3.1 mmol/L (3.5-5.1)
[2016-11-13 05:49] LABS: CALCIUM 6.9 mg/dL (8.5-10.1)
--- NOTE | 2016-11-13 07:40 | NUR ---
PT AOX4 RESP EVEN AND NONLABORED PT DENIES NEEDS AT THIS TIME IV TO RIGHT FOREARM PATENT AND INTACT AT THIS TIME SRX2 BED AT LOWEST SETTING CALL LIGHT WITHIN REACH WILL CONTINUE TO MONITOR
[2016-11-13 09:01] VITALS: BP 92/55
--- NOTE | 2016-11-13 11:03 | NUR ---
Patient Name: CARMELO ABDALLA Admission Status: Elective Accout number: [id number] Admission Date: 11-11-2016 : 1940 Admission Diagnosis:DVTRCLI OF LG INT W/O PERFORATION OR ABSCESS W/O BLEEDI Attending: DEVYN DUBOIS Current LOS: 2 Anticipated DC Date: 11-15-2016 Planned Disposition: Home Primary Insurance: MEDICARE A & B Discharge Planning Comments: CM MET WITH PATIENT REGARDING D/C NEEDS AND PLANS. PATIENT STATED SHE LIVES WITH HER SPOUSE (KEVAN) AND HE WILL DRIVE HER HOME AT DISCHARGE. PATIENT STATED THERE ARE NO STEPS OR STAIRS AT HER HOME. PATIENT STATED SHE IS INDEPENDENT WITH HER CARE AND ONLY HAS OXYGEN AT HOME AT 2L HS AND PRN. PATIENTS PCP IS DR. CEVALLOS AND PHARMACY IS [facility] AT [facility]. PATIENT SIGNED THE ERIC FORM FOR [facility] IF NEEDED. CM WILL CONTINUE TO FOLLOW PATIENT WITH D/C NEEDS AND PLANS. PCP DR. BAN DOCKERY AT [facility]- [phone] KEVAN (SPOUSE) [phone] Rocket Scientist: Miguelina Ferreira Is the patient Alert and Oriented? Yes 0 * How many steps to enter\exit or inside your home? 0 0 * PCP DR. CEVALLOS 0 * Pharmacy [facility] AT [facility] 0 * Preadmission Environment Home with Family 0 * ADLs Independent 0 * Equipment Oxygen 0 * List name and contact numbers for known caregivers / representatives who currently or will assist patient after discharge: KEVAN (SPOUSE) [phone] 0 * Community resources currently utilized None 0 * Additional services required to return to the preadmission environment? Yes 0 * Can the patient safely return to the preadmission environment? Yes 0 * Has this patient been hospitalized within the prior 30 days at any hospital? Yes 0 Grand Total: 0
[2016-11-13 12:22] VITALS: BP 115/65
[2016-11-13 17:13] VITALS: BP 115/66
[2016-11-13 20:00] VITALS: BP 107/53
[2016-11-14 04:00] VITALS: BP 121/75
[2016-11-14 05:45] LABS: BASOPHILS 0.3 % (0-2); EOSINOPHILS 2.6 % (0-7); HEMATOCRIT 23.7 % (36.0-48.0); HEMOGLOBIN 7.9 g/dL (12-16); IMMATURE GRANULOCYTES 0.2 % (0-5); LYMPHOCYTES 17.8 % (15-50); MCH 31.7 pg (26.0-34.0); MCHC 33.3 g/dL (31.0-37.0); MCV 95.2 fL (80.0-100.0); MONOCYTES 6.9 % (2-11); NEUTROPHILS 72.2 % (40-80); PLATELET COUNT 186 10x3/uL (130-400); RBC 2.49 10x6/uL (4.00-5.40); RDW 14.4 % (11.5-14.5); WBC 6.1 10x3/uL (4.8-10.8)
[2016-11-14 05:50] LABS: CALC OSMOLALITY 278 mosm/kg (275-300); CALCIUM 7.4 mg/dL (8.5-10.1); CARBON DIOXIDE 29.1 mmol/L (21.0-32.0); CHLORIDE - SERUM 107 mmol/L (98-107); CREATININE - SERUM 0.7 mg/dL (0.6-1.3); GLUCOSE 133 mg/dL (74-106); POTASSIUM - SERUM 3.5 mmol/L (3.5-5.1); SODIUM 140 mmol/L (136-145); UREA NITROGEN 6 mg/dL (7-18); eGFR NON AFRICAN AMERICAN 86 mL/min (90-120)
[2016-11-14 08:48] VITALS: BP 134/77
--- NOTE | 2016-11-14 10:30 | OP ---
PATIENT NAME: CARMELO ABDALLA MEDICAL RECORD: [id number] :38 LOCATION:D.MS Desir2225 ADMISSION DATE:11/11/16 SURGEON: GUY DUBOIS MD DATE OF OPERATION: 11/11/2016 PREOPERATIVE DIAGNOSES: 1. Tfulf-ow-pxnsjmj sigmoid diverticulitis. 2. GERD. 3. Chronic respiratory issues. 4. Hypertension. POSTOPERATIVE DIAGNOSES: 1. Oxvdj-tf-xbanrvr sigmoid diverticulitis. 2. GERD. 3. Chronic respiratory issues. 4. Hypertension. PROCEDURES: 1. Laparoscopic converted to open lysis of adhesions for 2 hours. 2. Sigmoid colectomy. SURGEON: Guy Dubois MD REPORT OF PROCEDURE: The patient's abdomen was prepped and draped in sterile fashion. A skin incision was made in the lower midline and electrocautery was used to dissect through the subcutaneous tissues into the abdominal cavity. Once inside, there was noted to be a large amount of adhesions present mainly of the omentum and the small bowel to anterior and lateral abdominal staton. A tedious dissection was performed. We were able to take down these adhesions from the area immediately around our incision site. We were able to put a GelPort into the abdomen and insufflate the abdomen. A 5-mm trocar was then placed in the right lateral abdomen at about the level of the umbilicus and a 12-mm trocar was placed in the right lower quadrant just anterior to the anterior-superior iliac crest. We tried dissection of the adhesions off the abdominal wall. We were able to get most of these adhesions down, but the adhesions were so thick in the pelvis that it was not able to safely pull these down using hand-assisted laparoscopic technique. We eventually just extended the incision and placed a larger Quan wound protector. The adhesions were tediously taken down from the pelvis including the right colon and the cecum which was extending down into the pelvis. Once we had all of this freed up, then we inspected the small bowel carefully and any sign of any deserosalizations were treated with 3-0 silk in a Lemberted fashion. There was no sign of any small bowel injury. We were able to find the area in the proximal pelvis where the colon was acutely/chronically inflamed from all the previous episodes of diverticulitis. I was able to dissect down below this area to what appeared to be more normal-appearing small rectum. A window was made between the base of this rectum and we were able to transect the mid rectum using #60 blue load Endo-ALISIA stapler. The mesentery was then taken down and tied off with 3-0 silk ties. We then transected the proximal sigmoid colon using electrocautery. The specimen was sent off for permanent to pathology. We then mobilized the splenic flexure and took down the white line of Toldt. A pursestring was placed around the distal end of the left colon using a 2-0 Prolene. A 29 EEA anvil was inserted and the Prolene was tied down tightly. We then performed an end-to-end anastomosis through the anus and rectum using the 29 EEA stapler. We checked the anastomosis under water and there was no sign of OPERATIVE REPORT [id number] CARMELO ABDALLA any leaking whenever air was instilled into the rectum. There were also noted to be 2 intact rings of tissue present in the stapler. We then oversewed the staple line using Lemberted 3-0 silks. The anastomosis did not appear to be under any tension. The abdomen was then irrigated out thoroughly with normal saline and care was taken to make sure there was no sign of any active surgical bleeding. The right and left ureters were easily visible in the pelvis and neither one of these appeared to be injured. The small bowel was run one last time to assure there was no sign of any injury. The right colon and cecum were inspected carefully also. We then placed all the bowel contents back into the abdominal cavity and NG tube was placed and felt to be in good position in the stomach. The peritoneal tissue was then reapproximated with running 3-0 Vicryl. The midline fascia was closed with running #1 loop PDS times 2. The wound was irrigated out one last time and then the skin incision was closed with shahzad. The 12-mm trocar site fascia was closed with an interrupted #0 Vicryl and the skin incision was closed with shahzad. COMPLICATIONS: None. CONDITION: Stable. ANESTHESIA: General endotracheal. BLOOD LOSS: 100 mL. TRANSINT:[id number] Voice Confirmation ID: [id number] DOCUMENT ID: [id number] GUY DUBOIS MD at 1030 CC: ISABEL FABIAN MD and STU CEVALLOS MD [id number] DICTATION DATE: 11/11/16 1635 ANIMAL CARE WORKER: 11/11/162012 ADM IN [facility] [address] [id number]
[2016-11-14 12:26] VITALS: BP 128/81
[2016-11-14 16:27] VITALS: BP 128/75
--- NOTE | 2016-11-14 19:00 | NUR ---
REPORT RECEIVED AND CARE OF PT ASSUMED. PT LYING IN SEMI BUTLER'S POSITION WITH EYES CLOSED AND EASY RESPIRATIONS. NG TUBE TO LEFT NARE TO LIS WITH DARK LIQUID IN COLLECTION CANNISTER. IV IN RIGHT FA PATENT WITH D5 1/2 NS W/ 20 KCL INFUSING AT 100 ML / HR. WILL MONITOR CLOSELY FOR NEEDS. CALL LIGHT WITHIN REACH.
[2016-11-14 20:00] VITALS: BP 124/74
--- NOTE | 2016-11-14 21:13 | NUR ---
HS MEDICATIONS GIVEN TO INCLUDE ATIVAN 0.5 MG IVP PER PT REQUEST. WILL CONTINUE TO MONITOR FOR NEEDS.
--- NOTE | 2016-11-14 21:45 | NUR ---
NEW BOTTLE OF CHLORASEPTIC SPRAY RECEIVED FROM PHARMACY, ONE ON BEDSIDE TABLE KNOCKED OFF INTO FLOOR.
[2016-11-15] VITALS: BP 113/74
--- NOTE | 2016-11-15 01:48 | NUR ---
PT RESTING QUIETLY WITH EYES CLOSED AND EASY RESPIRATIONS. CALL LIGHT WITHIN REACH.
[2016-11-15 04:00] VITALS: BP 126/79
--- NOTE | 2016-11-15 07:30 | NUR ---
RECIEVED PT DURING WALKING ROUNDS. PT RESTING IN BED WITH NO COMPLAINTS OF PAIN OR DISCOMFORT AT THIS TIME. ASSESSMENT DONE PER FLOWSHEET. BED IN LOW POSITION AND CALL LIGHT WITHIN REACH. WILL CONTINUE TO MONITOR.
--- NOTE | 2016-11-15 09:45 | NUR ---
FLUSHED PTS IV TO RESTART IV FLUIDS AFTER SHOWER AND IV IS LEAKING, UNABLE TO SAVE. ATTEMPTED TO RESITE, UNSUCCESSFUL. WILL HAVE ANOTHER NURSE ATTEMPT IV. NG TUBE CLAMPED PER VERBAL ORDER FROM DR. HARRIS. BED IN LOW POSITION AND CALL LIGHT WITHIN REACH. WILL CONTINUE TO MONITOR.
[2016-11-15 11:13] VITALS: BP 141/83
--- NOTE | 2016-11-15 11:25 | NUR ---
CALLED ABOUT PTS IV DUE TO UNSUCCESSFUL IV STARTS BY MULTIPLE NURSES. ICU NURSE CALLED TO ATTEMPT BUT ALSO UNSUCCESSFUL. RECIEVED VERBAL ORDERS TO LEAVE IV OUT UNTIL ARRIVAL ON TO FLOOR. ORDERS RECIEVED FOR PO PAIN MEDICATION NEEDED. BED IN LOW POSITION AND CALL LIGHT WITHIN REACH. WILL CONTINUE TO MONITOR.
[2016-11-15 12:54] VITALS: BP 151/82
--- NOTE | 2016-11-15 13:05 | NUR ---
POTASSIUM GIVEN PER PROTOCOL VIA NG TUBE. PT TOLERATED WELL. BED IN LOW POSITION AND CALL LIGHT WITHIN REACH. WILL CONTINUE TO MONITOR.
[2016-11-15 16:29] VITALS: BP 145/92
[2016-11-15 20:00] VITALS: BP 145/76
[2016-11-16 00:04] VITALS: BP 131/88
[2016-11-16 04:00] VITALS: BP 144/83
[2016-11-16 05:33] LABS: BASOPHILS 0.4 % (0-2); EOSINOPHILS 3.5 % (0-7); HEMATOCRIT 25.2 % (36.0-48.0); HEMOGLOBIN 8.5 g/dL (12-16); IMMATURE GRANULOCYTES 0.4 % (0-5); LYMPHOCYTES 21.6 % (15-50); MCH 31.6 pg (26.0-34.0); MCHC 33.7 g/dL (31.0-37.0); MCV 93.7 fL (80.0-100.0); MEAN PLATELET VOLUME 9.7 fL (7.4-10.4); MONOCYTES 10.6 % (2-11); NEUTROPHILS 63.5 % (40-80); PLATELET COUNT 201 10x3/uL (130-400); RBC 2.69 10x6/uL (4.00-5.40); RDW 13.9 % (11.5-14.5); WBC 5.1 10x3/uL (4.8-10.8)
[2016-11-16 05:34] LABS: CALC OSMOLALITY 275 mosm/kg (275-300); CALCIUM 7.7 mg/dL (8.5-10.1); CARBON DIOXIDE 29.6 mmol/L (21.0-32.0); CHLORIDE - SERUM 103 mmol/L (98-107); CREATININE - SERUM 0.6 mg/dL (0.6-1.3); GLUCOSE 123 mg/dL (74-106); MAGNESIUM - SERUM 1.2 mg/dL (1.8-2.4); POTASSIUM - SERUM 3.5 mmol/L (3.5-5.1); SODIUM 139 mmol/L (136-145); eGFR NON AFRICAN AMERICAN > 90 mL/min (90-120)
[2016-11-16 05:39] LABS: UREA NITROGEN 4 mg/dL (7-18)
--- NOTE | 2016-11-16 06:29 | NUR ---
JEISON BLOOD FROM LEFT SUBCL AND SENT TO LAB. K+ 3.5 AND MAG 1.2 - HUNG MAG SULFATE 2 GRAM IVPB 1 OF 2.
--- NOTE | 2016-11-16 07:30 | NUR ---
RECIEVED PT DURING WALKING ROUNDS, PT RESTING IN BED WITH NO COMPLAINTS OF PAIN OR DISCOMFORT AT THIS TIME, COFFEE SHOP AIDE IN USE. ASSESSMENT DONE PER FLOWSHEET. BED IN LOW POSITION AND CALL LIGHT WITHIN REACH. WILL CONTINUE TO MONITOR.
--- NOTE | 2016-11-16 09:00 | NUR ---
MAG COVERED PER PROTOCOL AT THIS TIME. PT RESTING IN BED WITH NO COMPLAINTS OF PAIN OR DISCOMFORT AT THIS TIME. BED IN LOW POSITION AND CALL LIGHT WITHIN REACH. WILL CONTINUE TO MONITOR.
[2016-11-16 09:20] VITALS: BP 145/87
--- NOTE | 2016-11-16 12:15 | NUR ---
POTASSIUM RIDER STARTED AT THIS TIME PER PROTOCOL FOR A POTASSIUM OF 3.5. NG TUBE HOOKED TO SUCTION, NO OUTPUT, NG TUBE D/C'D WITH CATH INTACT PER ORDER. BED IN LOW POSITION AND CALL LIGHT WITHIN REACH. WILL CONTINUE TO MONITOR.
[2016-11-16 12:31] VITALS: BP 157/95
--- NOTE | 2016-11-16 14:15 | NUR ---
SECOND POTASSIUM RIDER ADMINISTERED AT THIS TIME PER PROTOCOL. PT PASSING GAS SINCE REMOVAL OF NG TUBE. BED IN LOW POSITION AND CALL LIGHT WITHIN REACH. WILL CONTINUE TO MONITOR.
[2016-11-16 16:05] VITALS: BP 145/74
[2016-11-16 21:27] VITALS: BP 138/91
[2016-11-17 04:00] VITALS: BP 121/80
[2016-11-17 05:44] LABS: BASOPHILS 0.2 % (0-2); EOSINOPHILS 4.1 % (0-7); HEMOGLOBIN 8.8 g/dL (12-16); IMMATURE GRANULOCYTES 0.6 % (0-5); LYMPHOCYTES 30.5 % (15-50); MCH 31.9 pg (26.0-34.0); MCHC 33.8 g/dL (31.0-37.0); MCV 94.2 fL (80.0-100.0); MEAN PLATELET VOLUME 9.4 fL (7.4-10.4); MONOCYTES 12.5 % (2-11); NEUTROPHILS 52.1 % (40-80); PLATELET COUNT 203 10x3/uL (130-400); RBC 2.76 10x6/uL (4.00-5.40); RDW 14.2 % (11.5-14.5); WBC 5.1 10x3/uL (4.8-10.8)
[2016-11-17 05:55] LABS: CALC OSMOLALITY 273 mosm/kg (275-300); CALCIUM 7.7 mg/dL (8.5-10.1); CARBON DIOXIDE 28.6 mmol/L (21.0-32.0); CHLORIDE - SERUM 105 mmol/L (98-107); CREATININE - SERUM 0.6 mg/dL (0.6-1.3); GLUCOSE 113 mg/dL (74-106); POTASSIUM - SERUM 3.8 mmol/L (3.5-5.1); SODIUM 138 mmol/L (136-145); UREA NITROGEN 3 mg/dL (7-18); eGFR NON AFRICAN AMERICAN > 90 mL/min (90-120)
[2016-11-17 05:56] LABS: MAGNESIUM - SERUM 1.9 mg/dL (1.8-2.4)
--- NOTE | 2016-11-17 07:12 | NUR ---
REPORT RECEIVED FROM OFFICE COMMUNICATION PROFESSOR NURSE. CALL LIGHT IN REACH.
--- NOTE | 2016-11-17 07:50 | NUR ---
ATIVAN 0.5MG PO PER C/O ANXIETY. CALL LIGHT IN REACH.
--- NOTE | 2016-11-17 08:30 | NUR ---
ASSESSMENT COMPLETED. SPOKE WITH DR. DUBOIS ABOUT PATIENT'S BM.
[2016-11-17 08:48] VITALS: BP 127/79
--- NOTE | 2016-11-17 10:27 | NUR ---
NORCO PO WITH AM MEDS ADMINISTERED. IN ROOM. BOARD CERTIFIED FAMILY PHYSICIAN AND IV FLUIDS DC'D.
[2016-11-17 12:36] VITALS: BP 124/87
--- NOTE | 2016-11-17 12:59 | NUR ---
INSPECTOR GOLF BALL STATED THAT PATIENT SAID HER PAIN MEDS AREN'T WORKING. WILL GO SPEAK WITH PATIENT.
--- NOTE | 2016-11-17 13:20 | NUR ---
SPOKE WITH PATIENT ABOUT PAIN MEDS. STATES THAT THE PAIN MEDS DON'T HELP LIKE THE PAIN PUMP. WILL SPEAK WITH DR. DUBOIS ABOUT PATIENT REQUEST.
--- NOTE | 2016-11-17 13:45 | NUR ---
PERCOCET PO PER C/O PAIN OF 6. CALL LIGHT IN REACH.
--- NOTE | 2016-11-17 14:51 | NUR ---
NUTRITION F/U CHART REVIEWED. PT VISIT. PT TOLERATED REG DIET FOR LUNCH. REPORTS FAIR INTAKE. WILL CONTINUE TO PROVIDE DIET, MONITOR INTAKE. RD FOLLOWING
--- NOTE | 2016-11-17 15:32 | NUR ---
RESTING WITH EYES CLOSED. RESP EVEN AND UNLABORED. CALL LIGHT IN REACH.
[2016-11-17 15:56] VITALS: BP 104/66
--- NOTE | 2016-11-17 16:52 | NUR ---
CARAFATE PO PER ORDER. CALL LIGHT IN REACH.
--- NOTE | 2016-11-17 18:43 | NUR ---
NO CHANGES IN INITIAL ASSESSMENT. CALL LIGHT IN REACH. SCDs OFF PER PATIENT. WILL CONTINUE WITH PLAN OF CARE.
[2016-11-17 20:00] VITALS: BP 99/59
--- NOTE | 2016-11-17 20:02 | NUR ---
PT HERE FOR DIVERTICULITIS FOR THIS VISIT PT DENIES NEEDS AT THIS TIME IV PATENT AND INTACT AT THIS TIME SRX2 BED AT LOWEST SETTING CALL LIGHT WITHIN REACH WILL CONTINUE TO MONITOR
--- NOTE | 2016-11-17 23:39 | NUR ---
PATIENT IS IN BED, LAYING ON HER LEFT SIDE, RESTING QUIETLY WITH EYES CLOSED. NO SIGNS OF DISTRESS NOTED. BED IN LOWEST POSITION, CALL LIGHT IN REACH. BED RIALS UP X'S 2.
[2016-11-18 05:39] VITALS: BP 122/77
--- NOTE | 2016-11-18 07:23 | NUR ---
REPORT RECEIVED FROM SERVICE WORKER NURSE. CALL LIGHT IN REACH.
[2016-11-18] MEDS ORDERED: PERCOCET 10/3251 TA1 PO (07:53)
[2016-11-18] MEDS ORDERED: CYCLOBENZAPRINE10 MG PO (07:53)
[2016-11-18] MEDS ORDERED: ZOFRAN4 MG PO (07:54)
--- NOTE | 2016-11-18 08:02 | NUR ---
ASSESSMENT COMPLETED. PRN MEDS ADMINISTERED WITH AM MEDS. CALL LIGHT IN REACH. WILL CONTINUE WITH PLAN OF CARE.
[2016-11-18 08:05] VITALS: BP 112/64
--- NOTE | 2016-11-18 09:40 | NUR ---
PT RESTING COMFORTABLY. DENIES PAIN AT THIS TIME. L-SUBCLAVIAN CVL REMOVED WITH CATHETER INTACT. PT TOLERATED WELL. TAGADERM DRESSING APPLIED OVER SITE. PT DENIES OTHER NEEDS AT THIS TIME.
--- NOTE | 2016-11-18 10:12 | NUR ---
CM REASSESSMENT NOTE: PATIENT IS DISCHARGING HOME TODAY/ (KEVAN) IS DRIVING HER. PATIENT DOES NOT WANT HOME HEALTH AND HAS NO OTHER NEEDS FOR DISCHARGE. IMM SERVED
--- NOTE | 2016-11-18 10:39 | NUR ---
RX FOR PERCOCET GIVEN TO PATIENT. DC INSTRUCTIONS EXPLAINED TO PATIENT AND . VERBALIZED UNDERSTANDING. DC'D TO VEHICLE VIA WC WITH .
--- NOTE | 2016-12-05 21:34 | DS ---
PATIENT:CARMELO ABDALLA :38 MEDICAL RECORD: [id number] DISCHARGE SUMMARY ADMISSION DATE: 11/11/16 DISCHARGE DATE: 11/18/16 DATE OF ADMISSION: 11/11/2016 DATE OF DISCHARGE: 11/18/2016 ADMISSION DIAGNOSES: 1. [id number] sigmoid diverticulitis. 2. Gastroesophageal reflux disease. 3. Chronic respiratory failure. 4. Hypertension. DISCHARGE DIAGNOSES: 1. Rqcww-yf-ejomcot sigmoid diverticulitis. 2. Gastroesophageal reflux disease. 3. Chronic respiratory failure. 4. Hypertension. PROCEDURE: Laparoscopic converted to open lysis of adhesions with sigmoid colectomy on 11/11/2016. CONSULTATIONS: None. REPORT OF HOSPITALIZATION: The patient was admitted to the hospital after successful sigmoid colectomy for acute diverticulitis. The patient actually had a fairly standard postoperative course. She had no complications. She had some acute postoperative blood loss anemia, which we monitored at first, but eventually had to give the patient little blood. The patient eventually started having bowel function, was started on a diet. At that point, we were able to advance her diet slowly and eventually she was able to get up to a regular diet. Her pain appeared to be well controlled and her incisions were healing well. It was felt that she was stable for discharge home at that time. DISCHARGE INSTRUCTIONS: Return to clinic or call with any questions or concerns, fevers, chills, nausea, vomiting or worsening abdominal pain. ACTIVITIES: No heavy lifting or straining for 6 weeks. FOLLOWUP: Followup is in clinic with me in 1-2 weeks. DISCHARGE MEDICATIONS: Levothyroxine, doxazosin, simvastatin, Dyazide, vitamin D2, multivitamins, lactobacillus probiotic, lorazepam, Carafate, albuterol, Zofran, calcium 500 plus D tablets, Flexeril, and Percocet 10s. TRANSINT:[id number] Voice Confirmation ID: [id number] DOCUMENT ID: [id number] DISCHARGE SUMMARY REPORT [id number] CARMELO ABDALLA CHRISTIAN MD at 2134 CC: [id number] DICTATION DATE: 12/05/16 1327 PAPER SAMPLE CLERK: 12/05/16 1534 DIS IN 11/18/16 [place] [address]
== END 2016-11-18 10:39 | disposition home or self-care (01) | DRG 330 ==
LOC: D.SDCHOLD 05:50 → D.MS 05:50 → D.SDCHOLD 09:15 → D.MS 16:51
PROVIDERS: Surgery; ADMIT Surgery
PROC: 0DNW0ZZ Release Peritoneum, Open Approach (ICD-10-PCS; principal; 2016-11-11 09:15)
PROC: 0DBN0ZZ Excision of Sigmoid Colon, Open Approach (ICD-10-PCS; 2016-11-11 09:15)
PROC: 02H633Z Insertion of Infusion Device into Right Atrium, Percutaneous Approach (ICD-10-PCS; 2016-11-15)
DX: K57.32 Diverticulitis of large intestine without perforation or abscess without bleeding (principal); D62 Acute posthemorrhagic anemia; K21.9 Gastro-esophageal reflux disease without esophagitis; I10 Essential (primary) hypertension; K66.0 Peritoneal adhesions (postprocedural) (postinfection); Z53.31 Laparoscopic surgical procedure converted to open procedure; Z99.81 Dependence on supplemental oxygen; G47.33 Obstructive sleep apnea (adult) (pediatric)

== ENCOUNTER 2016-11-19 16:09 | Inpatient (IN) | payer MEDICARE, OTHER ==
[~2016-11-19 16:09] MED LIST changes: +CYCLOBENZAPRINE10 MG PO; +PERCOCET 10/3251 TA1 PO
[2016-11-19 16:54] LABS: BASOPHILS 0.1 % (0-2); EOSINOPHILS 0 % (0-7); HEMATOCRIT 32.2 % (36.0-48.0); HEMOGLOBIN 10.7 g/dL (12-16); IMMATURE GRANULOCYTES 0.6 % (0-5); LYMPHOCYTES 5.3 % (15-50); MCH 31.7 pg (26.0-34.0); MCHC 33.2 g/dL (31.0-37.0); MCV 95.3 fL (80.0-100.0); MEAN PLATELET VOLUME 9.5 fL (7.4-10.4); MONOCYTES 2.8 % (2-11); NEUTROPHILS 91.2 % (40-80); PLATELET COUNT 270 10x3/uL (130-400); RBC 3.38 10x6/uL (4.00-5.40); RDW 14.6 % (11.5-14.5); WBC 6.8 10x3/uL (4.8-10.8)
[2016-11-19 16:55] VITALS: BP 154/91
[2016-11-19 17:14] LABS: ANION GAP 10.8 mmol/L (8-16); CARBON DIOXIDE 32.6 mmol/L (21.0-32.0); CREATININE - SERUM 1.1 mg/dL (0.6-1.3); POTASSIUM - SERUM 3.4 mmol/L (3.5-5.1)
[2016-11-19 18:44] VITALS: BMI 23.2
[2016-11-19 20:00] VITALS: BP 161/87
--- NOTE | 2016-11-19 20:00 | NUR ---
REC'D LYING IN BED ALERT/ORIENTED X3 DAUGHTER AT BEDSIDE IV PATENT LEFT WRIST OF NS W/20MEQ KCL INFUSING AT 125CC'S/HR SITE CLEAR. NOTIFIED DR. DUBOIS OF PT'S ALLERGY TO DILAUDID ORDERS REC'D.
--- NOTE | 2016-11-19 20:20 | NUR ---
C/O ABDOMINAL PAIN. RATES P[AIN LEVEL #8. MORPHINE 2 MG IVP GIVEN FOR PAIN CONTROL.
--- NOTE | 2016-11-19 22:36 | NUR ---
HAVING DRY HEAVES NO EMESIS NOTED. ZOFRAN 4 MG IVP GIVEN FOR NAUSEA. UP TO BR VOIDS
--- NOTE | 2016-11-20 00:25 | NUR ---
C/O ABDOMINAL PAIN RATES PAIN LEVEL #6-8. MORPHINE 2MG IVP GIVEN FOR PAIN CONTROL.
--- NOTE | 2016-11-20 00:34 | NUR ---
C/O NAUSEA NO EMESIS SEEN CLEAR PHLEGM NOTED IN TISSUE. ZOFRAN 4MG IVP GIVEN FOR NAUSEA.
[2016-11-20 04:00] VITALS: BP 141/77
--- NOTE | 2016-11-20 04:32 | NUR ---
C/O ABDOMINAL PAIN. MORPHINE 2 MG IVP GIVEN FOR PAIN CONTROL.
--- NOTE | 2016-11-20 05:37 | NUR ---
EYES CLOSED RESPIRATIONS WITH EASE AND UNLABORED. SR UP X2 CALL LIGHT WITHIN REACH.
--- NOTE | 2016-11-20 07:15 | NUR ---
PATIENT RECEIVED IN LEFT LATERAL POSITION RESTING QUIETLY. NO SIGNS OF DISTRESS NOTED. SIDE RAILS UP X2. BED IN LOW POSITION. CALL LIGHT IN REACH.
[2016-11-20 07:53] VITALS: BP 116/72
--- NOTE | 2016-11-20 09:25 | NUR ---
16 KHMER NGT PLACED TO RIGHT NARE. PLACEMENT VERIFIED WITH AIR BOLUS. APPROXIMATELY 200CC YELLOW STOMACH CONTENT RETURNED TO SUCTION CANISTER. WELL TOLERATED.
--- NOTE | 2016-11-20 11:08 | NUR ---
ALERT IN BED WITH PRESENT. NO SIGNS OF DISTRESS NOTED. SCHEDULED MEDICATION ADMINISTERED. DENIES NEEDS. SIDE RAILS UP X2. BED IN LOW POSITION. CALL LIGHT IN REACH.
[2016-11-20 12:35] VITALS: BP 129/64
--- NOTE | 2016-11-20 13:24 | NUR ---
NUTRITION F/U CHART REVIEWED. PT NOW WITH NG TUBE TO SUCTION. RECEIVING ICE CHIPS, POPSICLES. WILL MONITOR PT PROGRESS, PROVIDE DIET WHEN APPROPRIATE. RD FOLLOWING
--- NOTE | 2016-11-20 14:17 | NUR ---
REQUESTING ATIVAN. ADMINISTERED PER PRN ORDER. DENIES NEEDS. IV TO LEFT HAND PATENT. NO REDNESS OR INFLAMMATION NOTED. SIDE RAILS UP X2. BED IN LOW POSITION. CALL LIGHT IN REACH. FAMILY PRESENT.
[2016-11-20 15:32] VITALS: BP 108/62
--- NOTE | 2016-11-20 16:10 | NUR ---
PATIENT IN MID BUTLER POSITION RESTING WITH EYES CLOSED. RESPIRATIONS EVEN AND UNLABORED. SIDE RAILS UP X2. BED IN LOW POSITION. CALL LIGHT IN REACH.
--- NOTE | 2016-11-20 17:07 | NUR ---
ALERT IN BED. C/O PAIN 08/25. MORPHINE ADMINISTERED PER PRN ORDER. DENIES NEEDS. SIDE RAILS UP X2. BED IN LOW POSITION. CALL LIGHT IN REACH.
[2016-11-20 20:00] VITALS: BP 121/73
--- NOTE | 2016-11-20 20:15 | NUR ---
ASSESSMENT PER FLOWSHEET. NGT TO RT NARE CONNECTED TO LIWS WITH RED DRAINAGE NOTED. REQUESTING NERVE/ANXIETY MED. ATIVAN 1MG IVP GIVEN FOR RELIEF OF ANXIETY. IV PATENT LEFT HAND OF [place]/20MEQ KCL INFUSING AT 125CC'S/HR.
--- NOTE | 2016-11-20 21:15 | NUR ---
REQUESTING PAIN MED MORPHINE 2 MG IVP GIVEN FOR PAIN IN ABDOMEN.
[2016-11-21 01:23] VITALS: BP 130/90
--- NOTE | 2016-11-21 01:39 | NUR ---
C/O PAIN IN ABDOMEN MORPHINE 2 MG IVP GIVEN FOR PAIN CONTROL.
--- NOTE | 2016-11-21 02:00 | NUR ---
ALREADY ASKING AT WHAT TIME SHE CAN HAVE HER ATIVAN. INFORMED OF TIME.
--- NOTE | 2016-11-21 03:00 | NUR ---
REQUESTING HER ATIVAN FOR ANXIETY. ATIVAN 1 MG IVP GIVEN FOR ANXIETY.
[2016-11-21 05:59] LABS: BASOPHILS 0.3 % (0-2); EOSINOPHILS 1.5 % (0-7); HEMATOCRIT 26.8 % (36.0-48.0); HEMOGLOBIN 8.8 g/dL (12-16); IMMATURE GRANULOCYTES 0.7 % (0-5); LYMPHOCYTES 27.5 % (15-50); MCH 31.9 pg (26.0-34.0); MCHC 32.8 g/dL (31.0-37.0); MCV 97.1 fL (80.0-100.0); MEAN PLATELET VOLUME 9.7 fL (7.4-10.4); RBC 2.76 10x6/uL (4.00-5.40); RDW 15.7 % (11.5-14.5); WBC 6.9 10x3/uL (4.8-10.8)
[2016-11-21 06:09] LABS: PLATELET COUNT 179 10x3/uL (130-400)
[2016-11-21 06:18] LABS: ANION GAP 10.2 mmol/L (8-16); CALCIUM 7.8 mg/dL (8.5-10.1); CARBON DIOXIDE 28.9 mmol/L (21.0-32.0); CREATININE - SERUM 0.9 mg/dL (0.6-1.3)
[2016-11-21 06:23] LABS: POTASSIUM - SERUM 4.1 mmol/L (3.5-5.1)
[2016-11-21 06:42] VITALS: BP 141/82
[2016-11-21 08:20] VITALS: BP 146/87
--- NOTE | 2016-11-21 08:38 | NUR ---
AWAKE AND ALERT. ORIENTED X3. NO C/O AT THIS TIME. LUNGS ARE CLEAR BILATERALLY, NO COUGH NOTED. SKIN IS INTACT WITHOUT REDNESS EXCEPT MID ABDOMINAL INCISION WHICH IS CLEAN AND DRY WITH CLIPS INTACT. NG TO LEFT NARE IS PATENT WITH GREENISH DISCHARGE. IV TO LEFT FOREARM/WRIST AREA IS INFILTRATED AT THIS TIME. WILL RESITE. DENIES NEEDS. UP TO BR WITH SBA. VOIDED CLEAR YELLOW URINE WITHOUT DIFFICUTLY.
--- NOTE | 2016-11-21 09:30 | NUR ---
IV TO LEFT WRIST IS REDDENED AND WARM. D/C WITH CATHETER INTACT. ATTEMPTED X1 TO RESITE WITHOUT SUCCESS. CALLED VASCULAR ACCESS NURSE.
--- NOTE | 2016-11-21 10:45 | NUR ---
IV SITED TO LEFT UPPER ARM PER CARMELO BLAKE. REQUESTED AND GIVEN 2MG MORPHINE SLOW IVP FOR C/O ABDOMINAL PAIN LEVEL 8. WILL MONITOR.
--- NOTE | 2016-11-21 12:05 | NUR ---
AMBULATED 250 FEET WITH DAUGHTER. DID WELL. REPORTS SOME NAUSEA WITH NG TUBE CLAMPED. REQUESTED AND GIVEN 1MG ATIVAN SLOW IVP FOR C/O ANXIETY. WILL MONITOR.
[2016-11-21 12:12] VITALS: BP 157/82
--- NOTE | 2016-11-21 13:29 | NUR ---
ATE MOST OF CLEAR LIQUID LUNCH TRAY. DENIES NEEDS. NO C/O NAUSEA OR PAIN AT THIS TIME.
[2016-11-21 16:01] VITALS: BP 148/84
--- NOTE | 2016-11-21 18:05 | NUR ---
UP TO BR PER SELF. REQUESTED AND GIVEN 1MG ATIVAN SLOW IVP FOR C/O ANXIETY. WILL MONITOR.
[2016-11-21 20:00] VITALS: BP 135/82
--- NOTE | 2016-11-21 22:54 | NUR ---
20G PIV STARTED IN RIGHT WRIST ON SECOND TRY AFTER PIV TO THE LEFT UPPER ARM SWELLED UP TO ABOUT 3 TIMES LARGE THE OTHER.
[2016-11-22] VITALS: BP 140/82
--- NOTE | 2016-11-22 00:25 | NUR ---
RN NOTE: PT RESTING QUIETLY IN SEMI BUTLER'S POSITION WITH EYES CLOSED AND EASY RESPIRATIONS. IV IN RIGHT HAND PATENT WITH NS W/ 2O KCL INFUSING AT 125 ML / HR. NG TUBE RIGHT NARE TO LIS WITH BROWN LIQUID IN COLLECTION CANNISTER. WILL CONTINUE TO MONITOR FOR NEEDS.
[2016-11-22 03:42] VITALS: BP 150/91
[2016-11-22 04:00] VITALS: BP 143/85
[2016-11-22 07:02] VITALS: BP 110/89
--- NOTE | 2016-11-22 07:15 | NUR ---
REPORT RECEIVED FROM YARDER OPERATOR NURSE. CALL LIGHT IN REACH.
--- NOTE | 2016-11-22 09:38 | NUR ---
ASSESSMENT COMPLETED. AM MEDS ADMINISTERED. EXPLAINED TO PATIENT ABOUT REASONING AND IMPORTANCE OF SCDs BUT REFUSED. IV TO LEFT UPPERARM DC'D WITH TIP INTACT. NGT CLAMPED. CALL LIGHT IN REACH. WILL CONTINUE WITH PLAN OF CARE.
--- NOTE | 2016-11-22 10:04 | NUR ---
IV TUBING CHANGED PER HOSPITAL POLICY. [facility] PLACED IN BR FOR MEASUREMENT OF URINE.
[2016-11-22 11:07] VITALS: BP 142/66
--- NOTE | 2016-11-22 12:48 | NUR ---
REQUESTED AND GIVEN 1MG ATIVAN SLOW IVP FOR C/O PAIN. WILL MONITOR.
--- NOTE | 2016-11-22 13:59 | NUR ---
REQUESTING PAIN MEDS AT THIS TIME. MORPHINE AND REGLAN SIVP. DAUGHTER AT BEDSIDE. CALL LIGHT IN REACH.
--- NOTE | 2016-11-22 19:13 | NUR ---
PATIENT HOOKED UP TO [facility] WITH COMPLAINTS OF 7/10 ABD PAIN AFTER MORPHINE AND SOME COMPLAINTS OF REGURITATION.
[2016-11-22 20:00] VITALS: BP 117/51; BP 156/97
--- NOTE | 2016-11-22 21:24 | NUR ---
PATIENT NGT WAS CLAMPED
--- NOTE | 2016-11-23 00:21 | NUR ---
PATIENT NGT HOOKED UP TO LIS
[2016-11-23 04:00] VITALS: BP 154/86
--- NOTE | 2016-11-23 07:15 | NUR ---
REPORT RECEIVED FROM HEALTH SAFETY SPECIALIST NURSE. CALL LIGHT IN REACH.
--- NOTE | 2016-11-23 08:52 | NUR ---
ASSESSMENT COMPLETED. CALL LIGHT IN REACH. WILL CONTINUE WITH PLAN OF CARE.
[2016-11-23 09:48] VITALS: BP 108/81
--- NOTE | 2016-11-23 10:51 | NUR ---
ROSLYN ESCOBAR WITH AM MEDS. CALL LIGHT IN REACH.
[2016-11-23 12:05] VITALS: BP 154/82
--- NOTE | 2016-11-23 12:05 | NUR ---
NO NEEDS VOICED AT THIS TIME. CALL LIGHT IN REACH.
--- NOTE | 2016-11-23 14:11 | NUR ---
MORPHINE C/O PAIN AND REGLAN SIVP. DAUGHTER IN ROOM. CALL LIGHT IN REACH.
--- NOTE | 2016-11-23 15:49 | NUR ---
VOMITING AT THIS TIME. STATES ACID REFLUX HAS BEEN BAD ALL DAY REGARDLESSOF REGLAN AND PROTONIX. SPOKE WITH DR. DUBOIS. NEW ORDERS RECEIVED. NGT ADVANCED 6-7 CM AND HOOKED BACK TO LIS.
--- NOTE | 2016-11-23 16:13 | NUR ---
RESTING QUIETLY IN BED AT THIS TIME. VISITORS AT BEDSIDE. NG TO LEFT NARE IS CONNECTED TO LIS AT THIS TIME FOR C/O NAUSEA. REPORTS NO NAUSEA AFTER BEING CONNECTED TO SUCTION.
--- NOTE | 2016-11-23 18:33 | NUR ---
REGLAN IV. NEW BAG OF MAINTENANCE FLUIDS INITIATED D/T BAG LEAKING. NO OTHER CHANGES IN INITIAL ASSESSMENT. CALL LIGHT IN REACH. WILL CONTINUE WITH PLAN OF CARE.
[2016-11-23 21:22] VITALS: BP 131/80
[2016-11-24] VITALS: BP 129/71
--- NOTE | 2016-11-24 01:10 | NUR ---
PATEINT REQUESTED THAT SUCTION BE TURNED OFF.
--- NOTE | 2016-11-24 04:33 | NUR ---
RN NOTE: PT RESTING QUIETLY AT THIS TIME WITH UNLABORED BREATHING. CALL LIGHT WITHIN REACH.
[2016-11-24 06:42] LABS: BASOPHILS 0.3 % (0-2); EOSINOPHILS 1.9 % (0-7); HEMATOCRIT 26.7 % (36.0-48.0); HEMOGLOBIN 8.9 g/dL (12-16); IMMATURE GRANULOCYTES 0.3 % (0-5); LYMPHOCYTES 21.6 % (15-50); MCH 31.8 pg (26.0-34.0); MCHC 33.3 g/dL (31.0-37.0); MCV 95.4 fL (80.0-100.0); MEAN PLATELET VOLUME 9.4 fL (7.4-10.4); MONOCYTES 9.2 % (2-11); NEUTROPHILS 66.7 % (40-80); RDW 15.3 % (11.5-14.5); WBC 6.9 10x3/uL (4.8-10.8)
[2016-11-24 06:46] LABS: PLATELET COUNT 326 10x3/uL (130-400)
[2016-11-24 06:56] LABS: CALC OSMOLALITY 273 mosm/kg (275-300); CALCIUM 7.4 mg/dL (8.5-10.1); CARBON DIOXIDE 28.4 mmol/L (21.0-32.0); CHLORIDE - SERUM 103 mmol/L (98-107); CREATININE - SERUM 0.7 mg/dL (0.6-1.3); GLUCOSE 87 mg/dL (74-106); POTASSIUM - SERUM 3.6 mmol/L (3.5-5.1); SODIUM 139 mmol/L (136-145); UREA NITROGEN 3 mg/dL (7-18); eGFR NON AFRICAN AMERICAN 86 mL/min (90-120)
[2016-11-24 08:21] VITALS: BP 145/77
--- NOTE | 2016-11-24 08:33 | NUR ---
SCHEDULED MEDICATIONS ADMINISTERED AT THIS TIME WITHOUT DIFFICULTY. CALL LIGHT IN REACH, WILL CONTINUE WITH PLAN OF CARE.
--- NOTE | 2016-11-24 09:20 | NUR ---
PT REQUESTING TO DRINK ORAL CONTRAST INSTEAD OF HAVING PUT DOWN NG TUBE.
--- NOTE | 2016-11-24 09:55 | NUR ---
PT COMPLETED ORAL CONTRAST WITHOUT COMPLAINTS OF NAUSEA.
--- NOTE | 2016-11-24 13:43 | NUR ---
Patient Name: CARMELO ELIZABETH Admission Status: Urgent Accout number: [id number] Admission Date: 11-20-2016 : 1940 Admission Diagnosis:ILEUS, UNSPECIFIED Attending: DEVYN DUBOIS Current LOS: 4 Anticipated DC Date: Planned Disposition: Home Primary Insurance: MEDICARE A & B Discharge Planning Comments: CM met with patient and (Renato) to assess discharge planning needs. Patient lives independently at home with her where she plans to return. Patient has home o2 at night and prn. 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 She does not have any steps or stairs in her home. CM will continue to follow and assist with discharge planning needs. PCP: Chip Lopez in [place] Renato Elizabeth (son) [phone] [employer] Section: Wendy Flaherty * Is the patient Alert and Oriented? Yes 0 * How many steps to enter\exit or inside your home? 0 0 * PCP chip 0 * Pharm[facility] * Preadmission Environment Home with Family 0 * ADLs Independent 0 * Equipment Oxygen 0 * List name and contact numbers for known caregivers / representatives who currently or will assist patient after discharge: renato elizabeth () [phone] 0 * Community resources currently utilized None 0 * Additional services required to return to the preadmission environment? Yes 0 * Can the patient safely return to the preadmission environment? Yes 0 * Has this patient been hospitalized within the prior 30 days at any hospital? Yes 0 Grand Total: 0
--- NOTE | 2016-11-24 15:14 | NUR ---
PRN MORPHINE ADMINISTERED FOR PAIN TO ABDOMEN.
[2016-11-24 17:31] VITALS: BP 161/87
[2016-11-24 20:00] VITALS: BP 142/82
--- NOTE | 2016-11-24 20:00 | NUR ---
ASSESSMENT PER FLOWSHEET. NGT PATENT AND CLAMPED. DENIES ANY NAAUSEA. IV PATENT RT WRIST OF NS W/20MEQ KCL INFUSING AT 75CC'S/HR. SITE CLEAR. HOB UP 30 DEGREES. SR UP X2 CALL LIGHT WITHIN REACH.
--- NOTE | 2016-11-24 21:00 | NUR ---
UP TO BR VOIDS WELL.
--- NOTE | 2016-11-25 | NUR ---
MEDS GIVEN PER APR. ATIVAN 1MG GIVEN FOR NERVES/ANXIETY. RESTING QUIETLY.
[2016-11-25 04:00] VITALS: BP 133/40
--- NOTE | 2016-11-25 04:35 | NUR ---
REQUESTING PAIN MED RATES ABDOMINAL PAINAS A 4-5. MORPHINE 2 MG IVP GIVEN FOR PAIN CONTROL.
--- NOTE | 2016-11-25 07:15 | NUR ---
REPORT RECEIVED FROM MARINATOR NURSE. CALL LIGHT IN REACH.
[2016-11-25 08:30] VITALS: BP 152/102
--- NOTE | 2016-11-25 08:44 | NUR ---
AMBULATED 500 FE[address] IN HALLWAY ADLIB. TOLERATED WELL WITH NO DISTRES OR PROBLEMS. BACK IN ROOM. ASSESSMENT COMPLETED. AM MEDS ADMINISTERED. MORPHINE 4 MG SIVP. REFUSES SCDs AT THIS TIME. CALL LIGHT IN REACH. WILL CONTINUE WITH PLAN OF CARE.
--- NOTE | 2016-11-25 10:20 | NUR ---
NO NEEDS VOICED AT THIS TIME. CALL LIGHT IN REACH.
--- NOTE | 2016-11-25 10:45 | NUR ---
NGT PULLED PER DR. DUBOIS.
[2016-11-25 11:39] VITALS: BP 160/97
--- NOTE | 2016-11-25 12:40 | NUR ---
MIRALAX AND COLACE PO. ATIVAN AND REGLAN IV.
--- NOTE | 2016-11-25 12:58 | NUR ---
NUTRITION F/U DIET ADVANCED TO FULL LIQUID. PT REPORTS TOLERATING WELL. NG TUBE DC'D. WILL PROVIDE DIET ORDERED BY MD, MONITOR PO INTAKE. RD FOLLOWING
--- NOTE | 2016-11-25 13:49 | NUR ---
UP TO BR WITH 'S ASSISTANCE. REPORTED SMALL AMOUNT OF STOOL. REQUESTED AND GIVEN 2 MG MORPHINE SLOW IVP FOR C/O ABDOMINAL PAIN LEVEL 5. WILL MONITOR.
[2016-11-25 15:07] VITALS: BP 158/92
--- NOTE | 2016-11-25 15:59 | NUR ---
REQUESTING PAIN MEDS BUT TOO SOON FOR ADMINISTRATION. EXPLAINED TO PATIENT AND DAUGHTER. BOTH VERBALIZED UNDERSTANDING.
--- NOTE | 2016-11-25 17:33 | NUR ---
ATIVAN, MORPHINE, AND REGLAN IV. CALL LIGHT IN REACH.
--- NOTE | 2016-11-25 18:04 | NUR ---
NO CHANGES IN INITIAL ASSESSMENT. CALL LIGHT IN REACH. WILL CONTINUE WITH PLAN OF CARE. STILL REFUSE SCDs.
--- NOTE | 2016-11-25 18:45 | NUR ---
patient in bed with iv intact. no complaints or signs of distress. call light within reach.
--- NOTE | 2016-11-25 19:21 | NUR ---
PATIENT TRAVON REMOVED AT THIS TIME. 12 MID ABDOMINAL TRAVON WITH NO PROBLEMS. SKIN CLEAN AND DRY. NO BLEEDING OR DRAINING. 2 RLQ WITH ALSO CLEAN AND DRY INCISION AND ONE STAPLE REMOVED RUQ. SKIN ON ALL INCISIONS CLEAN AND DRY WITH NO DRAINAGE OR REDNESS OR SIGNS OF INFECTION. PATIENT TOLERATED WITH SMALL AMOUNT OF PAIN. NO COMPLAINTS AT THIS TIME. CALL LIGHT WITHIN REACH.
[2016-11-25 20:00] VITALS: BP 155/100
[2016-11-26 04:00] VITALS: BP 138/95
--- NOTE | 2016-11-26 07:15 | NUR ---
REPORT RECEIVED FROM CONTRACT ADMINISTRATION COORDINATOR NURSE. CALL LIGHT IN REACH.
[2016-11-26 08:11] VITALS: BP 135/85
--- NOTE | 2016-11-26 09:45 | NUR ---
PATIENT ALERT IN HIGH BUTLER POSITION. NO SIGNS OF DISTRESS NOTED. SIDE RAILS UP X2. BED IN LOW POSITION. CALL LIGHT IN REACH.
--- NOTE | 2016-11-26 09:56 | NUR ---
ASSESSMENT COMPLETED. AM MEDS ADMINISTERED. REQUESTING PAIN MEDS. WILL GET ORDER TO RENEW. REFUSES SCDs. CALL LIGHT IN REACH. WILL CONTINUE WITH PLAN OF CARE.
--- NOTE | 2016-11-26 10:46 | NUR ---
MORPHINE 2 MG SIVP PER C/O PAIN OF 6.
--- NOTE | 2016-11-26 12:16 | NUR ---
NICOLELAN PER ORDER. REQUESTING ATIVAN BUT TOO SOON. AT BEDSIDE. CALL LIGHT IN REACH.
[2016-11-26 12:35] VITALS: BP 160/103
--- NOTE | 2016-11-26 13:17 | NUR ---
ATIVAN AND MORPHINE SIVP. CALL LIGHT IN REACH.
--- NOTE | 2016-11-26 14:41 | NUR ---
RESTING WITH EYES CLOSED. RESP EVEN AND UNLABORED. CALL LIGHT IN REACH.
--- NOTE | 2016-11-26 16:40 | NUR ---
DAUGHTER IN ROOM AT THIS TIME. CALL LIGHT IN REACH. NO DISTRESS NOTED.
[2016-11-26 17:27] VITALS: BP 164/103
--- NOTE | 2016-11-26 18:42 | NUR ---
NO CHANGES IN INITIAL ASSESSMENT. CALL LIGHT IN REACH. STILL REFUSES SCDs. WILL CONTINUE WITH PLAN OF CARE. AT BEDSIDE.
[2016-11-26 20:00] VITALS: BP 142/92
--- NOTE | 2016-11-26 20:00 | NUR ---
ASSESSMENT PER FLOWSHEET. IV PATENT RT WRIST OF NS W/20MEQ KCL INFUSING AT 75CC'S/HR SITE CLEAR. MIDLINE INCISION C/D/I. HEALING WELL.
--- NOTE | 2016-11-26 21:00 | NUR ---
MEDS GIVEN PER MAR.
--- NOTE | 2016-11-26 23:00 | NUR ---
UP TO BR HAD LARGE SEMISOLID STOOL. CLEANED AND DRIED. PT REQUESTING A BRIEF TO WEAR. BACK TO BED SR UP X2 CALL LIGHT WITHIN REACH.
[2016-11-27] VITALS: BP 123/78; BP 142/84
--- NOTE | 2016-11-27 | NUR ---
MEDS GIVEN PER MAR.
--- NOTE | 2016-11-27 02:00 | NUR ---
UP TO BR LARGE LIQUID STOOL NOTED. CLEANED APPLIED BRIEF AT PT'S REQUEST.
[2016-11-27 04:00] VITALS: BP 142/84
--- NOTE | 2016-11-27 04:30 | NUR ---
UP TO BR HAD LARGE LIQUID BROWN STOOL.
--- NOTE | 2016-11-27 06:35 | NUR ---
MEDS GIVEN PER MAR. NO CHANGES IN ASESSMENT.
--- NOTE | 2016-11-27 07:15 | NUR ---
REPORT RECEIVED. CALL LIGHT IN REACH.
[2016-11-27 08:55] VITALS: BP 142/84
--- NOTE | 2016-11-27 09:55 | NUR ---
AMBULATED 500 FEET IN HALLWAY. TOLERATED WELL.
--- NOTE | 2016-11-27 10:24 | NUR ---
ASSESSMENT COMPLETED. AM MEDS ADMINISTERED. MORPHIN E2 MG SIVP PER C/O PAIN. REFUSES SCDs. CALL LIGHT IN REACH. WILL CONTINUE WITH PLAN OF CARE.
[2016-11-27 11:29] VITALS: BP 192/75
--- NOTE | 2016-11-27 12:58 | NUR ---
REGLAN AND MORPHINE SIVP. CALL LIGHT IN REACH. IN ROOM.
--- NOTE | 2016-11-27 13:06 | NUR ---
REGLAN AND MORPHINE SIVP. CALL LIGHT IN REACH. IN ROOM.
[2016-11-27] MEDS ORDERED: REGLAN10 MG PO (14:32)
--- NOTE | 2016-11-27 14:50 | NUR ---
WALKED ANOTHER 500 FEET IN HALLWAY ADLIB.
--- NOTE | 2016-11-27 16:00 | NUR ---
AMBULATED IN HALLWAY WITH FAMILY. WILL DC HOME TODAY.
--- NOTE | 2016-11-27 16:41 | NUR ---
IV DC'D WITH TIP INTACT. DC INSTRUCTIONS EXPLAINED TO PATIENT AND . BOTH VERBALIZED UNDERSTANDING.
--- NOTE | 2016-11-27 17:13 | NUR ---
DC'D TO VEHICLE VIA WC WITH .
--- NOTE | 2016-12-23 11:14 | DS ---
PATIENT:CARMELO ABDALLA :38 MEDICAL RECORD: [id number] DISCHARGE SUMMARY ADMISSION DATE: 11/20/16 DISCHARGE DATE: 11/27/16 DATE OF ADMISSION: 11/19/2016 DATE OF DISCHARGE: 11/27/2016 ADMISSION DIAGNOSES: 1. Postoperative nausea, status post sigmoid colectomy for diverticulitis. 2. Asthma. 3. Gastroesophageal reflux disease. 4. Hypertension. 5. Hypercholesterolemia. 6. Hypothyroidism. DISCHARGE DIAGNOSES: 1. Postoperative nausea, status post sigmoid colectomy for diverticulitis. 2. Asthma. 3. Gastroesophageal reflux disease. 4. Hypertension. 5. Hypercholesterolemia. 6. Hypothyroidism. 7. Postoperative gastric ileus. CONSULTATIONS: None. PROCEDURE: None. REPORT OF HOSPITALIZATION: The patient was admitted to the hospital from the clinic with worsening abdominal pain and nausea. The patient had an acute abdominal series, which showed a massively distended stomach, but the remainder of her colon and small bowel appeared to be normal. She was started on Reglan and PPIs. Eventually, she requested to have an NG tube placed. She was continued to have discomfort. Once NG tube was placed, there was a dramatic decrease in her abdominal distention. We watched this for a few days, eventually clamped the NG tube and for 48 hours, she had an NG tube clamped with minimal pain and just 1 or 2 episodes of nausea. KUB showed that her stomach did not appear to be distended. The NG tube was removed and she had been started on a clear liquid diet. She tolerated this well. She did have some pain. This was controlled with p.o. Percocet and with Toradol. A CT scan was performed during her hospitalization and it showed everything appeared to be functioning appropriately. There was no sign of a leak and the patient's anastomoses appeared to be healed well. The small bowel and colon were normal in caliber, but the stomach showed distention. Eventually, the patient was felt to be stable for discharge home. She was tolerating diet with no nausea or vomiting. She had been having bowel movements and was feeling much better. DISCHARGE INSTRUCTIONS: Return to clinic or call with any questions or concerns, fevers, chills, nausea, vomiting or worsening abdominal pain. ACTIVITIES: No heavy lifting or straining for 6 weeks from the time of colectomy. DISCHARGE MEDICATIONS: Resume home medications with the inclusion of Reglan 10 DISCHARGE SUMMARY REPORT [id number] CARMELO ABDALLA. TRANSINT:[id number] Voice Confirmation ID: [id number] DOCUMENT ID: [id number] DEVYN DUBOIS MD at 1114 CC: [id number] DICTATION DATE: 12/05/162125 SQUARE DANCE CALLER: 12/06/16 0017 DIS IN 11/27/16 [id number] [place] [address]
== END 2016-11-27 17:13 | disposition home or self-care (01) | DRG 394 ==
LOC: OBSVTIME 16:09 → D.MS 16:09
PROVIDERS: ADMIT Surgery
PROC: 0D9670Z Drainage of Stomach with Drainage Device, Via Natural or Artificial Opening (ICD-10-PCS; principal; 2016-11-20)
DX: K91.89 Other postprocedural complications and disorders of digestive system (principal); D62 Acute posthemorrhagic anemia; K56.7 Ileus, unspecified; Y83.8 Other surgical procedures as the cause of abnormal reaction of the patient, or of later complication, without mention of misadventure at the time of the procedure; J45.909 Unspecified asthma, uncomplicated; K21.9 Gastro-esophageal reflux disease without esophagitis; I10 Essential (primary) hypertension; E78.00 Pure hypercholesterolemia, unspecified; E03.9 Hypothyroidism, unspecified

== ENCOUNTER → 2017-01-13 08:28 | Outpatient (CLI) | payer MEDICARE, OTHER | END | disposition home or self-care (01) | LOC: D.OPS 08:28 | DX: K22.4 Dyskinesia of esophagus (principal) ==

== ENCOUNTER → 2017-01-28 14:48 | Outpatient (CLI) | payer MEDICARE, OTHER | END | disposition home or self-care (01) | LOC: D.LABREF 14:48 | DX: N39.0 Urinary tract infection, site not specified (principal); R33.9 Retention of urine, unspecified ==

== ENCOUNTER → 2017-02-06 10:22 | Outpatient (CLI) | payer MEDICARE, OTHER | END | disposition home or self-care (01) | LOC: D.LAB 02-05 09:00 | DX: R06.00 Dyspnea, unspecified (principal) ==

== ENCOUNTER → 2017-04-17 09:51 | Outpatient (CLI) | payer MEDICARE, OTHER | END | disposition home or self-care (01) | LOC: D.RAD 09:51 | DX: R11.0 Nausea (principal); R10.13 Epigastric pain; Z98.890 Other specified postprocedural states ==

== ENCOUNTER → 2017-04-27 09:22 | Outpatient (CLI) | payer MEDICARE, OTHER | END | disposition home or self-care (01) | LOC: D.RAD 04-22 10:30 | DX: R19.7 Diarrhea, unspecified (principal); R10.9 Unspecified abdominal pain; R11.0 Nausea ==